=== PATIENT | male | born 1940 | race Caucasian/White ===

== ENCOUNTER 2020-08-16 08:05 | Inpatient (IN) | payer OTHER, MEDICAID, SELFPAY ==
[~2020-08-16] VITALS: Ht 170.2 cm; Wt 78.9 kg
[2020-08-16 02:00] VITALS: BP 141/71
[2020-08-16 08:05] VITALS: BP 135/70
[~2020-08-16 08:05] MED LIST: CLIN-223 PO; CLOP75TA PO; HYDR1TAB28 PO; NIFE60TA39 PO; RAMI2.5C28 PO; SULF1TAB12
[2020-08-16] MEDS ORDERED: ACETAMINOPHEN 325 MG TAB PO ONE (08:15)
[2020-08-16] MEDS ORDERED: DEXAMETHASONE 4 MG/ML VIAL IVP ONE (08:15)
[2020-08-16] MEDS ORDERED: NIFE30TE5 PO (08:19)
[2020-08-16] MEDS ORDERED: ASPI-1822 PO (08:19)
[2020-08-16] MEDS ORDERED: DOXA2TAB1 PO (08:19)
[2020-08-16] MEDS ORDERED: HYDR-3293 PO (08:19)
[2020-08-16] MEDS ORDERED: ALPR0.5T2 PO (08:19)
[2020-08-16] MEDS ORDERED: OMEP40EC24 PO (08:19)
[2020-08-16] MEDS ORDERED: ATOR10TA PO (08:19)
[2020-08-16] MEDS ORDERED: CILO100T PO (08:19)
[2020-08-16 08:30] LABS: BASOPHILS % (AUTO) 0.2 % (0.0-2.0); HEMATOCRIT 36.6 % (36-52); HEMOGLOBIN 12.2 g/dL (12.0-18.0); LYMPHOCYTES # (AUTO) 1.2 K/uL (2.0-11.5); LYMPHOCYTES % (AUTO) 13.3 % (20.5-51.1); MEAN CORPUSCULAR HEMOGLOBIN 29 pg (27-31); MEAN CORPUSCULAR HGB CONC 33 g/dL (33-37); MONOCYTES # (AUTO) 0.4 K/uL (0.8-1.0); MONOCYTES % (AUTO) 4.2 % (1.7-9.3); NEUTROPHILS # (AUTO) 7.3 K/uL (1.8-7.7); NEUTROPHILS % (AUTO) 82.3 % (42.2-75.2); PLATELET COUNT (AUTO) 157 K/uL (140-450); RED BLOOD CELL COUNT(AUTO) 4.16 MIL/uL (4.20-6.10); RED CELL DISTRIBUTION WIDTH 13.7 % (11.6-13.7); WHITE BLOOD COUNT (AUTO) 8.8 K/uL (4.8-10.8)
[2020-08-16 08:52] LABS: ALBUMIN 3.1 g/dL (3.4-5.0); ANION GAP 16.4 (8-16); ASPARTATE AMINOTRANSFERASE 90 U/L (15-37); CARBON DIOXIDE 22.6 mmol/L (21-32); CHLORIDE 100 mmol/L (98-107); CREATININE 1.9 mg/dL (0.6-1.3); GLUCOSE 113 mg/dL (74-106); SODIUM SERUM 135 mmol/L (136-145); TOTAL BILIRUBIN 0.5 mg/dL (0.0-1.0); UREA NITROGEN, BLOOD 25 mg/dL (7-18)
[2020-08-16 09:22] LABS: C-REACTIVE PROTEIN QUANT 24.1 mg/dL (0.0-0.9)
[2020-08-16] MEDS ORDERED: ASPIRIN 81 MG TAB.CHEW PO SCH (10:15)
[2020-08-16] MEDS ORDERED: MAGNESIUM OXIDE 400 MG TAB PO PRN (10:50)
[2020-08-16] MEDS ORDERED: ALPRAZolam 0.5 MG TAB PO PRN (10:50)
[2020-08-16] MEDS ORDERED: HYDROcodone/APAP 5/325 MG 1 TAB TAB PO PRN (10:50)
[2020-08-16] MEDS ORDERED: ZOLPIDEM 5 MG TAB PO PRN (10:50)
[2020-08-16] MEDS ORDERED: MAG SULF 2000 MG/WATER PREMIX 50 ML IV PRN (10:50)
[2020-08-16] MEDS ORDERED: ONDANSETRON 4 MG/2 ML VIAL IVP PRN (10:50)
[2020-08-16] MEDS ORDERED: KCL 20 MEQ/WATER INJ PREMIX 200 ML IV PRN (10:50)
[2020-08-16] MEDS ORDERED: cefTRIAXone 1,000 MG VIAL ONE (11:23)
[2020-08-16] MEDS: POTASSIUM CHL 40 MEQ/ D5-1/2NS 1,000 ML IV SCH ×2 (11:25→23:32)
[2020-08-16] MEDS: ENOXAPARIN 40 MG/0.4 ML SYR SUBQ SCH ×2 (11:25→21:27)
[2020-08-16] MEDS: ALBUTEROL SULFATE/IPRATROPIU 3 ML SOL IH SCH ×2 (13:00→19:50)
[2020-08-16] MEDS ORDERED: AZITHROMYCIN 500 MG in DEXTROSE 5% 250 ML IV SCH (13:00)
[2020-08-16] MEDS ORDERED: NON-FORMULARY ITEM (Losartan/Hydrochlorothiazide (Losartan-Hctz 50-12.5 mg Tab) 1 TAB) PO SCH (21:00)
[2020-08-16] MEDS: NIFEdipine 30 MG TABER PO SCH (21:14)
[2020-08-16] MEDS: hydroCHLOROthiazide 25 MG TAB PO SCH (21:18)
[2020-08-16] MEDS: ATORVASTATIN 20 MG TAB PO SCH (21:21)
[2020-08-16] MEDS: LOSARTAN 50 MG TAB PO SCH (21:22)
[2020-08-16] MEDS: cilostazoL 100 MG TAB PO SCH (21:23)
[2020-08-16] MEDS: DOXAZOSIN 2 MG TAB PO SCH (21:26)
[2020-08-17] VITALS (61 sets, daily range): BP systolic 90–170; BP diastolic 45–125
[2020-08-17 00:57] LABS: BASOPHILS % (AUTO) 0.2 % (0.0-2.0); HEMOGLOBIN 11.8 g/dL (12.0-18.0); LYMPHOCYTES # (AUTO) 1.3 K/uL (2.0-11.5); MEAN CORPUSCULAR HEMOGLOBIN 29 pg (27-31); MEAN CORPUSCULAR HGB CONC 33 g/dL (33-37); MEAN CORPUSCULAR VOLUME 88.7 fL (80-94); MONOCYTES # (AUTO) 0.5 K/uL (0.8-1.0); MONOCYTES % (AUTO) 2.8 % (1.7-9.3); NEUTROPHILS # (AUTO) 14.6 K/uL (1.8-7.7); PLATELET COUNT (AUTO) 163 K/uL (140-450); RED BLOOD CELL COUNT(AUTO) 4.06 MIL/uL (4.20-6.10); RED CELL DISTRIBUTION WIDTH 14.1 % (11.6-13.7); WHITE BLOOD COUNT (AUTO) 16.4 K/uL (4.8-10.8)
[2020-08-17 01:20] LABS: ALBUMIN 2.4 g/dL (3.4-5.0); ASPARTATE AMINOTRANSFERASE 108 U/L (15-37); GLUCOSE 350 mg/dL (74-106); TOTAL BILIRUBIN 0.2 mg/dL (0.0-1.0); UREA NITROGEN, BLOOD 26 mg/dL (7-18)
[2020-08-17 01:27] LABS: ANION GAP 18.1 (8-16); CHLORIDE 99 mmol/L (98-107); POTASSIUM 4.1 mmol/L (3.5-5.1); SODIUM SERUM 134 mmol/L (136-145)
[2020-08-17] MEDS ORDERED: fentaNYL citrate 1 MG in NACL 0.9% 80 ML IV PRN ×2 (02:00→03:15)
[2020-08-17] MEDS ORDERED: MIDAZOLAM MDV 50 MG in NACL 0.9% 40 ML IV PRN (02:00)
[2020-08-17] MEDS ORDERED: MIDAZOLAM MDV 50 MG/10 ML VIAL IV ONE (02:21)
[2020-08-17 03:41] LABS: APPEARANCE,URINE SL CLOUDY (CLEAR); BILIRUBIN,URINE NEGATIVE (NEGATIVE); BLOOD, URINE 3+ (NEGATIVE); COLOR,URINE YELLOW (YELLOW); LEUKOCYTE ESTERASE ,URINE NEGATIVE (NEGATIVE); NITRITE, URINE NEGATIVE (NEGATIVE); UGLUCOSE NEGATIVE (NEGATIVE)
[2020-08-17] MEDS: POTASSIUM CHL 40 MEQ/ D5-1/2NS 1,000 ML IV SCH (05:00)
[2020-08-17 06:12] LABS: BASOPHILS # (AUTO) 0.1 K/uL (0.00-0.22); BASOPHILS % (AUTO) 0.5 % (0.0-2.0); HEMATOCRIT 36.7 % (36-52); LYMPHOCYTES # (AUTO) 0.4 K/uL (2.0-11.5); LYMPHOCYTES % (AUTO) 2.1 % (20.5-51.1); MEAN CORPUSCULAR HEMOGLOBIN 29 pg (27-31); MEAN CORPUSCULAR HGB CONC 33 g/dL (33-37); MEAN CORPUSCULAR VOLUME 88.9 fL (80-94); MONOCYTES # (AUTO) 0.5 K/uL (0.8-1.0); MONOCYTES % (AUTO) 2.7 % (1.7-9.3); NEUTROPHILS # (AUTO) 18.9 K/uL (1.8-7.7); NEUTROPHILS % (AUTO) 94.7 % (42.2-75.2); PLATELET COUNT (AUTO) 165 K/uL (140-450); RED BLOOD CELL COUNT(AUTO) 4.13 MIL/uL (4.20-6.10); RED CELL DISTRIBUTION WIDTH 14.2 % (11.6-13.7); WHITE BLOOD COUNT (AUTO) 19.9 K/uL (4.8-10.8)
[2020-08-17 06:14] LABS: PROTHROMBIN TIME 10.6 secs (10.8-13.4)
[2020-08-17] MEDS: LANSOPRAZOLE 30 MG CAPDR PO SCH (06:25)
[2020-08-17 06:33] LABS: ALBUMIN 2.4 g/dL (3.4-5.0); ANION GAP 15.2 (8-16); ASPARTATE AMINOTRANSFERASE 173 U/L (15-37); CARBON DIOXIDE 21.8 mmol/L (21-32); CHLORIDE 102 mmol/L (98-107); CHOL/HDL RATIO 3.6 (1-4.5); CREATININE 1.8 mg/dL (0.6-1.3); GLUCOSE 236 mg/dL (74-106); MAGNESIUM 1.7 mg/dL (1.8-2.4); SODIUM SERUM 135 mmol/L (136-145); TOTAL BILIRUBIN 0.4 mg/dL (0.0-1.0); UREA NITROGEN, BLOOD 27 mg/dL (7-18)
[2020-08-17 07:27] LABS: D-DIMER > 5000 ng/ml (0-400)
[2020-08-17] MEDS: NIFEdipine 30 MG TABER PO SCH ×2 (09:00→21:00)
[2020-08-17] MEDS ORDERED: NON-FORMULARY ITEM (Omeprazole* (Prilosec*) 20 MG) PO SCH (09:00)
[2020-08-17] MEDS ORDERED: DOCUSATE SODIUM 100 MG GELCAP PO SCH (09:00)
[2020-08-17] MEDS: LOSARTAN 50 MG TAB PO SCH (09:00)
[2020-08-17] MEDS: hydroCHLOROthiazide 25 MG TAB PO SCH (09:00)
[2020-08-17] MEDS: ASPIRIN 81 MG TAB.CHEW PO SCH (09:34)
[2020-08-17] MEDS: ENOXAPARIN 40 MG/0.4 ML SYR SUBQ SCH (09:35)
[2020-08-17] MEDS: DOCUSATE 100 MG/10 ML UDC GT SCH (09:37)
[2020-08-17] MEDS: cilostazoL 100 MG TAB PO SCH ×2 (10:33→21:00)
[2020-08-17] MEDS ORDERED: FUROSEMIDE 40 MG/4 ML VIAL IVP SCH (15:30)
[2020-08-17] MEDS: hePARIN / DEXT 5% PREMIX 250 ML IV SCH (16:45)
[2020-08-17 19:06] LABS: LACTATE DEHYDROGENASE 414 IU/L (0-214)
[2020-08-17] MEDS ORDERED: ROCURONIUM 50 MG/5 ML VIAL IV SCH (19:10)
[2020-08-17] MEDS: ALBUTEROL SULFATE/IPRATROPIU 3 ML SOL IH SCH (19:49)
[2020-08-17] MEDS: DOXAZOSIN 2 MG TAB PO SCH (21:00)
[2020-08-17] MEDS: ATORVASTATIN 20 MG TAB PO SCH (21:44)
[2020-08-17] MEDS: fentaNYL citrate - 50mL vial 2.5 MG in NACL 0.9% 200 ML IV PRN (23:01)
[2020-08-18] VITALS (52 sets, daily range): BP systolic 76–137; BP diastolic 1–93
[2020-08-18] MEDS: MIDAZOLAM MDV 100 MG in NACL 0.9% 80 ML IV PRN (01:20)
[2020-08-18] MEDS: ALBUTEROL SULFATE/IPRATROPIU 3 ML SOL IH SCH ×4 (01:46→19:00)
[2020-08-18 06:08] LABS: BASOPHILS % (AUTO) 0.1 % (0.0-2.0); HEMATOCRIT 33.4 % (36-52); LYMPHOCYTES # (AUTO) 0.6 K/uL (2.0-11.5); LYMPHOCYTES % (AUTO) 2.6 % (20.5-51.1); MEAN CORPUSCULAR HEMOGLOBIN 29 pg (27-31); MEAN CORPUSCULAR HGB CONC 33 g/dL (33-37); MEAN CORPUSCULAR VOLUME 88.7 fL (80-94); MONOCYTES # (AUTO) 0.6 K/uL (0.8-1.0); NEUTROPHILS # (AUTO) 20.4 K/uL (1.8-7.7); NEUTROPHILS % (AUTO) 94.3 % (42.2-75.2); PLATELET COUNT (AUTO) 192 K/uL (140-450); RED BLOOD CELL COUNT(AUTO) 3.77 MIL/uL (4.20-6.10); WHITE BLOOD COUNT (AUTO) 21.6 K/uL (4.8-10.8)
[2020-08-18 06:56] LABS: ALBUMIN 2.4 g/dL (3.4-5.0); ANION GAP 15.3 (8-16); ASPARTATE AMINOTRANSFERASE 150 U/L (15-37); CARBON DIOXIDE 22.9 mmol/L (21-32); CHLORIDE 102 mmol/L (98-107); CREATININE 2.2 mg/dL (0.6-1.3); GLUCOSE 127 mg/dL (74-106); MAGNESIUM 1.9 mg/dL (1.8-2.4); SODIUM SERUM 135 mmol/L (136-145); TOTAL BILIRUBIN 0.5 mg/dL (0.0-1.0); UREA NITROGEN, BLOOD 37 mg/dL (7-18)
[2020-08-18] MEDS: LANSOPRAZOLE 30 MG CAPDR PO SCH (06:58)
[2020-08-18 07:15] LABS: POTASSIUM 5.2 mmol/L (3.5-5.1)
[2020-08-18] MEDS: ASPIRIN 81 MG TAB.CHEW PO SCH (09:00)
[2020-08-18] MEDS: HEPARIN PER PHARMACY MC SCH (09:00)
[2020-08-18] MEDS: NIFEdipine 30 MG TABER PO SCH ×2 (09:00→20:26)
[2020-08-18] MEDS: DOCUSATE 100 MG/10 ML UDC GT SCH (09:00)
[2020-08-18] MEDS: LOSARTAN 25 MG TAB PO SCH (09:00)
[2020-08-18] MEDS: cilostazoL 100 MG TAB PO SCH ×2 (09:13→20:39)
[2020-08-18] MEDS: AZITHROMYCIN 500 MG in DEXTROSE 5% 250 ML IV SCH (10:45)
[2020-08-18] MEDS ORDERED: FUROSEMIDE 40 MG/4 ML VIAL IVP SCH (13:36)
[2020-08-18] MEDS: NOREPINEPHRINE 16 MG in DEXTROSE 5% 250 ML IV PRN (13:49)
[2020-08-18] MEDS: PIPERACILLIN/TAZOBACTAM 2.25 GM in DEXTROSE 5% 50 ML IV SCH (17:29)
[2020-08-18] MEDS: fentaNYL citrate - 50mL vial 2.5 MG in NACL 0.9% 200 ML IV PRN (18:41)
[2020-08-18] MEDS: hePARIN / DEXT 5% PREMIX 250 ML IV SCH (20:15)
[2020-08-18] MEDS: DOXAZOSIN 2 MG TAB PO SCH (20:27)
[2020-08-18] MEDS: ATORVASTATIN 20 MG TAB PO SCH (20:39)
[2020-08-18] MEDS ORDERED: CRUSHER, PILL MC ONE (20:43)
[2020-08-18 20:50] LABS: PROTHROMBIN TIME 10.5 secs (10.8-13.4)
[2020-08-19] VITALS (35 sets, daily range): BP systolic 78–143; BP diastolic 29–91
[2020-08-19] MEDS: ALBUTEROL SULFATE/IPRATROPIU 3 ML SOL IH SCH ×3 (01:07→13:00)
[2020-08-19] MEDS: MIDAZOLAM MDV 100 MG in NACL 0.9% 80 ML IV PRN ×2 (02:19→10:56)
[2020-08-19] MEDS: PIPERACILLIN/TAZOBACTAM 2.25 GM in DEXTROSE 5% 50 ML IV SCH ×3 (05:00→21:08)
[2020-08-19 06:25] LABS: BASOPHILS % (AUTO) 0.2 % (0.0-2.0); HEMATOCRIT 33.8 % (36-52); HEMOGLOBIN 11.1 g/dL (12.0-18.0); LYMPHOCYTES # (AUTO) 0.4 K/uL (2.0-11.5); LYMPHOCYTES % (AUTO) 2.6 % (20.5-51.1); MEAN CORPUSCULAR HEMOGLOBIN 29 pg (27-31); MEAN CORPUSCULAR HGB CONC 33 g/dL (33-37); MEAN CORPUSCULAR VOLUME 88.3 fL (80-94); MONOCYTES # (AUTO) 0.5 K/uL (0.8-1.0); MONOCYTES % (AUTO) 3.2 % (1.7-9.3); NEUTROPHILS # (AUTO) 13.9 K/uL (1.8-7.7); PLATELET COUNT (AUTO) 187 K/uL (140-450); RED BLOOD CELL COUNT(AUTO) 3.83 MIL/uL (4.20-6.10); RED CELL DISTRIBUTION WIDTH 13.8 % (11.6-13.7); WHITE BLOOD COUNT (AUTO) 14.8 K/uL (4.8-10.8)
[2020-08-19] MEDS: LANSOPRAZOLE 30 MG CAPDR PO SCH (06:31)
[2020-08-19 06:46] LABS: PROTHROMBIN TIME 10.8 secs (10.8-13.4)
[2020-08-19 06:53] LABS: ALBUMIN 2.3 g/dL (3.4-5.0); ANION GAP 14.7 (8-16); ASPARTATE AMINOTRANSFERASE 88 U/L (15-37); CARBON DIOXIDE 23.2 mmol/L (21-32); CHLORIDE 100 mmol/L (98-107); CREATININE 2.3 mg/dL (0.6-1.3); GLUCOSE 203 mg/dL (74-106); MAGNESIUM 2.1 mg/dL (1.8-2.4); POTASSIUM 3.9 mmol/L (3.5-5.1); SODIUM SERUM 134 mmol/L (136-145); TOTAL BILIRUBIN 0.4 mg/dL (0.0-1.0); UREA NITROGEN, BLOOD 48 mg/dL (7-18)
[2020-08-19] MEDS: HEPARIN PER PHARMACY MC SCH (09:00)
[2020-08-19] MEDS: NIFEdipine 30 MG TABER PO SCH (09:00)
[2020-08-19] MEDS: cilostazoL 100 MG TAB PO SCH ×2 (09:00→21:11)
[2020-08-19] MEDS: LOSARTAN 25 MG TAB PO SCH (09:00)
[2020-08-19] MEDS: DOCUSATE 100 MG/10 ML UDC GT SCH (09:30)
[2020-08-19] MEDS: ASPIRIN 81 MG TAB.CHEW PO SCH (09:30)
[2020-08-19] MEDS: hePARIN / DEXT 5% PREMIX 250 ML IV SCH ×2 (09:33→17:06)
[2020-08-19] MEDS ORDERED: CRUSHER, PILL MC ONE (09:45)
[2020-08-19] MEDS: AZITHROMYCIN 500 MG in DEXTROSE 5% 250 ML IV SCH (10:54)
[2020-08-19] MEDS: MIDODRINE 5 MG TAB PO SCH ×2 (12:21→17:09)
[2020-08-19] MEDS: ATORVASTATIN 20 MG TAB PO SCH (21:05)
[2020-08-19] MEDS: fentaNYL citrate - 50mL vial 2.5 MG in NACL 0.9% 200 ML IV PRN (21:23)
[2020-08-20] VITALS (33 sets, daily range): BP systolic 110–175; BP diastolic 44–82
[2020-08-20] MEDS: MIDODRINE 5 MG TAB PO SCH ×5 (00:40→23:20)
[2020-08-20] MEDS: NOREPINEPHRINE 16 MG in DEXTROSE 5% 250 ML IV PRN (02:00)
[2020-08-20] MEDS: PIPERACILLIN/TAZOBACTAM 2.25 GM in DEXTROSE 5% 50 ML IV SCH ×3 (05:46→20:58)
[2020-08-20] MEDS: cilostazoL 100 MG TAB PO SCH ×2 (05:56→20:52)
[2020-08-20 06:07] LABS: BASOPHILS % (AUTO) 0.2 % (0.0-2.0); LYMPHOCYTES # (AUTO) 0.4 K/uL (2.0-11.5); MEAN CORPUSCULAR HEMOGLOBIN 29 pg (27-31); MEAN CORPUSCULAR HGB CONC 33 g/dL (33-37); MEAN CORPUSCULAR VOLUME 87.3 fL (80-94); MONOCYTES # (AUTO) 0.7 K/uL (0.8-1.0); NEUTROPHILS # (AUTO) 16.8 K/uL (1.8-7.7); PLATELET COUNT (AUTO) 220 K/uL (140-450); RED BLOOD CELL COUNT(AUTO) 3.09 MIL/uL (4.20-6.10); RED CELL DISTRIBUTION WIDTH 13.9 % (11.6-13.7)
[2020-08-20 06:29] LABS: ALBUMIN 1.9 g/dL (3.4-5.0); ANION GAP 12.5 (8-16); ASPARTATE AMINOTRANSFERASE 60 U/L (15-37); CARBON DIOXIDE 23.9 mmol/L (21-32); CHLORIDE 102 mmol/L (98-107); CREATININE 2.4 mg/dL (0.6-1.3); GLUCOSE 144 mg/dL (74-106); MAGNESIUM 2.1 mg/dL (1.8-2.4); POTASSIUM 4.4 mmol/L (3.5-5.1); SODIUM SERUM 134 mmol/L (136-145); TOTAL BILIRUBIN 0.4 mg/dL (0.0-1.0); UREA NITROGEN, BLOOD 54 mg/dL (7-18)
[2020-08-20 06:32] LABS: PROTHROMBIN TIME 10.9 secs (10.8-13.4)
[2020-08-20 07:02] LABS: LYMPHOCYTES % (AUTO) 2.4 % (20.5-51.1); NEUTROPHILS % (AUTO) 93.4 % (42.2-75.2)
[2020-08-20] MEDS: hePARIN / DEXT 5% PREMIX 250 ML IV SCH ×2 (07:17→12:00)
[2020-08-20] MEDS: DOCUSATE 100 MG/10 ML UDC GT SCH (09:47)
[2020-08-20] MEDS: PANTOPRAZOLE 40 MG INJ VIAL IVP SCH (09:47)
[2020-08-20] MEDS: DEXAMETHASONE 4 MG/ML VIAL IVP SCH (09:47)
[2020-08-20] MEDS: ASPIRIN 81 MG TAB.CHEW PO SCH (09:48)
[2020-08-20] MEDS: HEPARIN PER PHARMACY MC SCH ×2 (09:49→12:00)
[2020-08-20] MEDS: AZITHROMYCIN 500 MG in DEXTROSE 5% 250 ML IV SCH (10:45)
[2020-08-20] MEDS: MIDAZOLAM MDV 100 MG in NACL 0.9% 80 ML IV PRN ×2 (18:30→23:50)
[2020-08-20] MEDS: ATORVASTATIN 20 MG TAB PO SCH (20:52)
[2020-08-21] VITALS (35 sets, daily range): BP systolic 95–199; BP diastolic 44–121
[2020-08-21] MEDS: PIPERACILLIN/TAZOBACTAM 2.25 GM in DEXTROSE 5% 50 ML IV SCH ×3 (05:21→21:01)
[2020-08-21] MEDS: MIDODRINE 5 MG TAB PO SCH (05:22)
[2020-08-21 06:14] LABS: BASOPHILS # (AUTO) 0.1 K/uL (0.00-0.22); BASOPHILS % (AUTO) 0.9 % (0.0-2.0); EOSINOPHILS % (AUTO) 0.1 % (0.0-4.0); HEMOGLOBIN 9.9 g/dL (12.0-18.0); LYMPHOCYTES # (AUTO) 0.6 K/uL (2.0-11.5); LYMPHOCYTES % (AUTO) 4.1 % (20.5-51.1); MEAN CORPUSCULAR HEMOGLOBIN 28 pg (27-31); MEAN CORPUSCULAR HGB CONC 32 g/dL (33-37); MEAN CORPUSCULAR VOLUME 87.9 fL (80-94); MONOCYTES # (AUTO) 0.8 K/uL (0.8-1.0); MONOCYTES % (AUTO) 5.1 % (1.7-9.3); NEUTROPHILS # (AUTO) 13.5 K/uL (1.8-7.7); NEUTROPHILS % (AUTO) 89.8 % (42.2-75.2); PLATELET COUNT (AUTO) 281 K/uL (140-450); RED BLOOD CELL COUNT(AUTO) 3.53 MIL/uL (4.20-6.10); RED CELL DISTRIBUTION WIDTH 14.1 % (11.6-13.7)
[2020-08-21 06:34] LABS: ALBUMIN 2.1 g/dL (3.4-5.0); ANION GAP 13.7 (8-16); ASPARTATE AMINOTRANSFERASE 233 U/L (15-37); CARBON DIOXIDE 25.1 mmol/L (21-32); CHLORIDE 101 mmol/L (98-107); CREATININE 2.2 mg/dL (0.6-1.3); GLUCOSE 152 mg/dL (74-106); MAGNESIUM 2.3 mg/dL (1.8-2.4); POTASSIUM 3.8 mmol/L (3.5-5.1); SODIUM SERUM 136 mmol/L (136-145); TOTAL BILIRUBIN 0.4 mg/dL (0.0-1.0); UREA NITROGEN, BLOOD 55 mg/dL (7-18)
[2020-08-21] MEDS: ALBUTEROL SULFATE/IPRATROPIU 3 ML SOL IH SCH ×3 (06:37→19:19)
[2020-08-21 08:39] LABS: PROTHROMBIN TIME 10.4 secs (10.8-13.4)
[2020-08-21] MEDS: ASPIRIN 81 MG TAB.CHEW PO SCH (09:00)
[2020-08-21] MEDS: PANTOPRAZOLE 40 MG INJ VIAL IVP SCH (09:15)
[2020-08-21] MEDS: cilostazoL 100 MG TAB PO SCH ×2 (09:15→21:05)
[2020-08-21] MEDS: DEXAMETHASONE 4 MG/ML VIAL IVP SCH (09:15)
[2020-08-21] MEDS: DOCUSATE 100 MG/10 ML UDC GT SCH (09:15)
[2020-08-21] MEDS: ACETAMINOPHEN 325 MG TAB PO PRN (10:06)
[2020-08-21] MEDS: AZITHROMYCIN 500 MG in DEXTROSE 5% 250 ML IV SCH (10:16)
[2020-08-21] MEDS: hePARIN / DEXT 5% PREMIX 250 ML IV SCH (12:42)
[2020-08-21] MEDS: LABETALOL 100 MG/20 ML VIAL IV PRN (15:55)
[2020-08-21] MEDS: MIDAZOLAM MDV 100 MG in NACL 0.9% 80 ML IV PRN (17:37)
[2020-08-21] MEDS: carvediloL 6.25 MG TAB PO SCH (21:01)
[2020-08-21] MEDS: ATORVASTATIN 20 MG TAB PO SCH (21:02)
[2020-08-22] VITALS (32 sets, daily range): BP systolic 103–144; BP diastolic 47–64
[2020-08-22] MEDS: ALBUTEROL SULFATE/IPRATROPIU 3 ML SOL IH SCH ×4 (01:04→19:03)
[2020-08-22] MEDS: fentaNYL citrate - 50mL vial 2.5 MG in NACL 0.9% 200 ML IV PRN ×2 (02:03→20:51)
[2020-08-22] MEDS: PIPERACILLIN/TAZOBACTAM 2.25 GM in DEXTROSE 5% 50 ML IV SCH ×3 (04:36→20:29)
[2020-08-22 06:07] LABS: LD1 FRACTION 17 % (17-32); LD2 FRACTION 31 % (25-40); LD3 FRACTION 23 % (17-27); LD4 FRACTION 14 % (5-13); LD5 FRACTION 15 % (4-20)
[2020-08-22] MEDS: MIDAZOLAM MDV 100 MG in NACL 0.9% 80 ML IV PRN (06:47)
[2020-08-22 07:43] LABS: BASOPHILS % (AUTO) 0.3 % (0.0-2.0); EOSINOPHILS # (AUTO) 0.5 K/uL (0-0.4); EOSINOPHILS % (AUTO) 3.3 % (0.0-4.0); HEMATOCRIT 25.3 % (36-52); HEMOGLOBIN 8.4 g/dL (12.0-18.0); LYMPHOCYTES # (AUTO) 0.8 K/uL (2.0-11.5); LYMPHOCYTES % (AUTO) 5.2 % (20.5-51.1); MEAN CORPUSCULAR HEMOGLOBIN 29 pg (27-31); MEAN CORPUSCULAR HGB CONC 33 g/dL (33-37); MEAN CORPUSCULAR VOLUME 86.7 fL (80-94); MONOCYTES # (AUTO) 0.9 K/uL (0.8-1.0); MONOCYTES % (AUTO) 6.3 % (1.7-9.3); NEUTROPHILS # (AUTO) 12.4 K/uL (1.8-7.7); NEUTROPHILS % (AUTO) 84.9 % (42.2-75.2); PLATELET COUNT (AUTO) 248 K/uL (140-450); RED BLOOD CELL COUNT(AUTO) 2.92 MIL/uL (4.20-6.10); RED CELL DISTRIBUTION WIDTH 14.1 % (11.6-13.7); WHITE BLOOD COUNT (AUTO) 14.6 K/uL (4.8-10.8)
[2020-08-22] MEDS: ASPIRIN 81 MG TAB.CHEW PO SCH (09:00)
[2020-08-22] MEDS: HEPARIN PER PHARMACY MC SCH (09:00)
[2020-08-22 09:07] LABS: MAGNESIUM 2.3 mg/dL (1.8-2.4); PHOSPHORUS 3.5 mg/dL (2.5-4.9)
[2020-08-22] MEDS: DOCUSATE 100 MG/10 ML UDC GT SCH (09:35)
[2020-08-22] MEDS: DEXAMETHASONE 4 MG/ML VIAL IVP SCH (09:35)
[2020-08-22] MEDS: PANTOPRAZOLE 40 MG INJ VIAL IVP SCH (09:35)
[2020-08-22] MEDS: carvediloL 6.25 MG TAB PO SCH ×2 (09:36→20:31)
[2020-08-22] MEDS: amLODIPine 5 MG TAB PO SCH (09:36)
[2020-08-22] MEDS: cilostazoL 100 MG TAB PO SCH ×2 (09:37→20:33)
[2020-08-22] MEDS: AZITHROMYCIN 500 MG in DEXTROSE 5% 250 ML IV SCH (10:14)
[2020-08-22 11:52] LABS: ANION GAP 15.9 (8-16); CARBON DIOXIDE 22.4 mmol/L (21-32); CHLORIDE 101 mmol/L (98-107); CREATININE 1.9 mg/dL (0.6-1.3); GLUCOSE 165 mg/dL (74-106); POTASSIUM 4.3 mmol/L (3.5-5.1); SODIUM SERUM 135 mmol/L (136-145); UREA NITROGEN, BLOOD 53 mg/dL (7-18)
[2020-08-22 15:58] LABS: APPEARANCE,URINE CLOUDY (CLEAR); BILIRUBIN,URINE NEGATIVE (NEGATIVE); BLOOD, URINE 2+ (NEGATIVE); COLOR,URINE YELLOW (YELLOW); LEUKOCYTE ESTERASE ,URINE NEGATIVE (NEGATIVE); NITRITE, URINE NEGATIVE (NEGATIVE); UGLUCOSE NEGATIVE (NEGATIVE)
[2020-08-22] MEDS: hePARIN / DEXT 5% PREMIX 250 ML IV SCH (16:13)
[2020-08-22 17:43] LABS: RBC,URINE 11-20 (MOD) /HPF (0-5); WBC,URINE 0-5 /HPF (0-5)
[2020-08-22 17:44] LABS: URIC ACID CRYSTALS,URINE 0-10 /HPF (None Seen); URINE AMORPHOUS URATE 1+ /HPF (None Seen)
[2020-08-22] MEDS: ATORVASTATIN 20 MG TAB PO SCH (20:31)
[2020-08-23] VITALS (34 sets, daily range): BP systolic 123–195; BP diastolic 56–88
[2020-08-23] MEDS: MIDAZOLAM MDV 100 MG in NACL 0.9% 80 ML IV PRN (00:50)
[2020-08-23] MEDS: ALBUTEROL SULFATE/IPRATROPIU 3 ML SOL IH SCH ×4 (01:00→23:15)
[2020-08-23] MEDS: PIPERACILLIN/TAZOBACTAM 2.25 GM in DEXTROSE 5% 50 ML IV SCH ×3 (04:45→20:44)
[2020-08-23 06:07] LABS: HEMATOCRIT 23.7 % (36-52); HEMOGLOBIN 7.8 g/dL (12.0-18.0); MEAN CORPUSCULAR HEMOGLOBIN 30 pg (27-31); MEAN CORPUSCULAR HGB CONC 33 g/dL (33-37); MEAN CORPUSCULAR VOLUME 90.3 fL (80-94); PLATELET COUNT (AUTO) 251 K/uL (140-450); RED BLOOD CELL COUNT(AUTO) 2.62 MIL/uL (4.20-6.10); RED CELL DISTRIBUTION WIDTH 13.9 % (11.6-13.7)
[2020-08-23 06:12] LABS: CARBON DIOXIDE 25.5 mmol/L (21-32); CHLORIDE 101 mmol/L (98-107); CREATININE 1.9 mg/dL (0.6-1.3); GLUCOSE 242 mg/dL (74-106); POTASSIUM 4.5 mmol/L (3.5-5.1); SODIUM SERUM 133 mmol/L (136-145); UREA NITROGEN, BLOOD 56 mg/dL (7-18)
[2020-08-23] MEDS: LABETALOL 100 MG/20 ML VIAL IV PRN (06:16)
[2020-08-23 06:31] LABS: MAGNESIUM 2.5 mg/dL (1.8-2.4)
[2020-08-23 07:58] LABS: LYMPHOCYTES % (MANUAL) 5 % (20-46); MONOCYTES % (MANUAL) 3 % (5-12)
[2020-08-23] MEDS ORDERED: FUROSEMIDE 100 MG/10 ML VIAL IV ONE (08:10)
[2020-08-23] MEDS: DOCUSATE 100 MG/10 ML UDC GT SCH (08:50)
[2020-08-23] MEDS: DEXAMETHASONE 4 MG/ML VIAL IVP SCH (08:50)
[2020-08-23] MEDS: PANTOPRAZOLE 40 MG INJ VIAL IVP SCH (08:51)
[2020-08-23] MEDS: ASPIRIN 81 MG TAB.CHEW PO SCH (08:52)
[2020-08-23] MEDS: amLODIPine 5 MG TAB PO SCH (08:53)
[2020-08-23] MEDS: carvediloL 6.25 MG TAB PO SCH ×2 (08:53→20:22)
[2020-08-23] MEDS: cilostazoL 100 MG TAB PO SCH ×2 (08:58→20:21)
[2020-08-23] MEDS: HEPARIN PER PHARMACY MC SCH (09:00)
[2020-08-23] MEDS: AZITHROMYCIN 500 MG in DEXTROSE 5% 250 ML IV SCH (10:30)
[2020-08-23] MEDS: hePARIN / DEXT 5% PREMIX 250 ML IV SCH ×2 (10:44→20:15)
[2020-08-23] MEDS: ATORVASTATIN 20 MG TAB PO SCH (20:22)
[2020-08-23] MEDS: fentaNYL citrate - 50mL vial 2.5 MG in NACL 0.9% 200 ML IV PRN (21:42)
[2020-08-24] VITALS (30 sets, daily range): BP systolic 32–185; BP diastolic 17–93
[2020-08-24] MEDS: fentaNYL citrate - 50mL vial 2.5 MG in NACL 0.9% 200 ML IV PRN ×2 (01:08→21:27)
[2020-08-24] MEDS: hePARIN / DEXT 5% PREMIX 250 ML IV SCH ×2 (02:15→08:45)
[2020-08-24] MEDS: PIPERACILLIN/TAZOBACTAM 2.25 GM in DEXTROSE 5% 50 ML IV SCH ×3 (04:36→20:59)
[2020-08-24] MEDS: ALBUTEROL SULFATE/IPRATROPIU 3 ML SOL IH SCH ×4 (05:10→19:41)
[2020-08-24 06:29] LABS: BASOPHILS % (AUTO) 0.1 % (0.0-2.0); EOSINOPHILS % (AUTO) 0.1 % (0.0-4.0); HEMATOCRIT 21.4 % (36-52); LYMPHOCYTES # (AUTO) 0.6 K/uL (2.0-11.5); LYMPHOCYTES % (AUTO) 4.1 % (20.5-51.1); MEAN CORPUSCULAR HEMOGLOBIN 30 pg (27-31); MEAN CORPUSCULAR HGB CONC 33 g/dL (33-37); MEAN CORPUSCULAR VOLUME 90.1 fL (80-94); MONOCYTES % (AUTO) 6.6 % (1.7-9.3); NEUTROPHILS # (AUTO) 13.7 K/uL (1.8-7.7); NEUTROPHILS % (AUTO) 89.1 % (42.2-75.2); PLATELET COUNT (AUTO) 250 K/uL (140-450); RED BLOOD CELL COUNT(AUTO) 2.38 MIL/uL (4.20-6.10); RED CELL DISTRIBUTION WIDTH 14.1 % (11.6-13.7); WHITE BLOOD COUNT (AUTO) 15.4 K/uL (4.8-10.8)
[2020-08-24 06:33] LABS: ANION GAP 9.4 (8-16); CHLORIDE 101 mmol/L (98-107); CREATININE 1.8 mg/dL (0.6-1.3); GLUCOSE 210 mg/dL (74-106); POTASSIUM 4.4 mmol/L (3.5-5.1); SODIUM SERUM 135 mmol/L (136-145)
[2020-08-24 06:34] LABS: UREA NITROGEN, BLOOD 63 mg/dL (7-18)
[2020-08-24 06:39] LABS: MAGNESIUM 2.4 mg/dL (1.8-2.4); PHOSPHORUS 4.3 mg/dL (2.5-4.9)
[2020-08-24 06:43] LABS: HEMOGLOBIN 7.1 g/dL (12.0-18.0)
[2020-08-24] MEDS: HEPARIN PER PHARMACY MC SCH (09:00)
[2020-08-24] MEDS: carvediloL 6.25 MG TAB PO SCH ×2 (09:00→20:59)
[2020-08-24] MEDS: cilostazoL 100 MG TAB PO SCH ×2 (09:00→20:58)
[2020-08-24] MEDS: DEXAMETHASONE 4 MG/ML VIAL IVP SCH (09:17)
[2020-08-24] MEDS: DOCUSATE 100 MG/10 ML UDC GT SCH (09:17)
[2020-08-24] MEDS: PANTOPRAZOLE 40 MG INJ VIAL IVP SCH (09:18)
[2020-08-24] MEDS: ASPIRIN 81 MG TAB.CHEW PO SCH (09:20)
[2020-08-24] MEDS: amLODIPine 5 MG TAB NG SCH (09:20)
[2020-08-24] MEDS: AZITHROMYCIN 500 MG in DEXTROSE 5% 250 ML IV SCH (10:45)
[2020-08-24] MEDS: MIDAZOLAM MDV 100 MG in NACL 0.9% 80 ML IV PRN ×2 (11:00→21:21)
[2020-08-24] MEDS: QUEtiapine FUMARATE 25 MG TAB NG SCH (20:58)
[2020-08-24] MEDS: ATORVASTATIN 20 MG TAB PO SCH (20:58)
[2020-08-24] MEDS ORDERED: QUEtiapine FUMARATE 25 MG TAB NG SCH (21:00)
[2020-08-25] VITALS (31 sets, daily range): BP systolic 133–178; BP diastolic 52–93
[2020-08-25] MEDS: ALBUTEROL SULFATE/IPRATROPIU 3 ML SOL IH SCH ×2 (01:29→19:25)
[2020-08-25 03:47] LABS: MAGNESIUM 2.2 mg/dL (1.8-2.4); PHOSPHORUS 3.5 mg/dL (2.5-4.9)
[2020-08-25 03:49] LABS: ANION GAP 8.8 (8-16); CARBON DIOXIDE 30.5 mmol/L (21-32); CHLORIDE 100 mmol/L (98-107); CREATININE 1.7 mg/dL (0.6-1.3); GLUCOSE 186 mg/dL (74-106); POTASSIUM 4.3 mmol/L (3.5-5.1); SODIUM SERUM 135 mmol/L (136-145)
[2020-08-25 03:52] LABS: BASOPHILS # (AUTO) 0.1 K/uL (0.00-0.22); BASOPHILS % (AUTO) 0.5 % (0.0-2.0); EOSINOPHILS # (AUTO) 0.5 K/uL (0-0.4); EOSINOPHILS % (AUTO) 3.4 % (0.0-4.0); HEMATOCRIT 23.8 % (36-52); HEMOGLOBIN 7.8 g/dL (12.0-18.0); LYMPHOCYTES # (AUTO) 0.7 K/uL (2.0-11.5); LYMPHOCYTES % (AUTO) 4.4 % (20.5-51.1); MEAN CORPUSCULAR HEMOGLOBIN 29 pg (27-31); MEAN CORPUSCULAR HGB CONC 33 g/dL (33-37); MEAN CORPUSCULAR VOLUME 89.2 fL (80-94); MONOCYTES % (AUTO) 6.7 % (1.7-9.3); NEUTROPHILS # (AUTO) 12.9 K/uL (1.8-7.7); PLATELET COUNT (AUTO) 304 K/uL (140-450); RED BLOOD CELL COUNT(AUTO) 2.67 MIL/uL (4.20-6.10); WHITE BLOOD COUNT (AUTO) 15.2 K/uL (4.8-10.8)
[2020-08-25 03:53] LABS: UREA NITROGEN, BLOOD 63 mg/dL (7-18)
[2020-08-25] MEDS: PIPERACILLIN/TAZOBACTAM 2.25 GM in DEXTROSE 5% 50 ML IV SCH ×3 (05:25→20:47)
[2020-08-25] MEDS: hePARIN / DEXT 5% PREMIX 250 ML IV SCH ×3 (06:43→19:16)
[2020-08-25] MEDS: HEPARIN PER PHARMACY MC SCH (09:00)
[2020-08-25] MEDS: DEXAMETHASONE 4 MG/ML VIAL IVP SCH (09:00)
[2020-08-25] MEDS: DOCUSATE 100 MG/10 ML UDC GT SCH (09:01)
[2020-08-25] MEDS: FUROSEMIDE 40 MG/4 ML VIAL IVP SCH (09:02)
[2020-08-25] MEDS: PANTOPRAZOLE 40 MG INJ VIAL IVP SCH (09:02)
[2020-08-25] MEDS: amLODIPine 5 MG TAB NG SCH (09:03)
[2020-08-25] MEDS: QUEtiapine FUMARATE 25 MG TAB NG SCH ×2 (09:03→21:07)
[2020-08-25] MEDS: ASPIRIN 81 MG TAB.CHEW PO SCH (09:03)
[2020-08-25] MEDS: carvediloL 6.25 MG TAB PO SCH ×2 (09:04→21:06)
[2020-08-25] MEDS: cilostazoL 100 MG TAB PO SCH ×2 (09:04→21:04)
[2020-08-25] MEDS: DEXMEDETOMIDINE HCL 400 MCG in NACL 0.9% 96 ML IV PRN ×2 (13:15→15:00)
[2020-08-25 18:19] LABS: PROTHROMBIN TIME 10.3 secs (10.8-13.4)
[2020-08-25] MEDS: fentaNYL citrate - 50mL vial 2.5 MG in NACL 0.9% 200 ML IV PRN (20:02)
[2020-08-25] MEDS: ATORVASTATIN 20 MG TAB PO SCH (21:07)
[2020-08-26] VITALS (31 sets, daily range): BP systolic 106–207; BP diastolic 42–105
[2020-08-26] MEDS: ALBUTEROL SULFATE/IPRATROPIU 3 ML SOL IH SCH ×3 (01:17→19:45)
[2020-08-26] MEDS: hePARIN / DEXT 5% PREMIX 250 ML IV SCH (02:47)
[2020-08-26] MEDS: PIPERACILLIN/TAZOBACTAM 2.25 GM in DEXTROSE 5% 50 ML IV SCH ×2 (05:11→13:41)
[2020-08-26 06:25] LABS: ANION GAP 11.7 (8-16); CARBON DIOXIDE 27.8 mmol/L (21-32); CHLORIDE 100 mmol/L (98-107); CREATININE 1.5 mg/dL (0.6-1.3); GLUCOSE 176 mg/dL (74-106); POTASSIUM 4.5 mmol/L (3.5-5.1); SODIUM SERUM 135 mmol/L (136-145); UREA NITROGEN, BLOOD 60 mg/dL (7-18)
[2020-08-26 06:31] LABS: BASOPHILS % (AUTO) 0.2 % (0.0-2.0); EOSINOPHILS # (AUTO) 0.1 K/uL (0-0.4); EOSINOPHILS % (AUTO) 0.6 % (0.0-4.0); HEMATOCRIT 24.8 % (36-52); HEMOGLOBIN 8.4 g/dL (12.0-18.0); LYMPHOCYTES # (AUTO) 1.2 K/uL (2.0-11.5); LYMPHOCYTES % (AUTO) 7.9 % (20.5-51.1); MEAN CORPUSCULAR HEMOGLOBIN 30 pg (27-31); MEAN CORPUSCULAR HGB CONC 34 g/dL (33-37); MEAN CORPUSCULAR VOLUME 89.1 fL (80-94); MONOCYTES # (AUTO) 1.2 K/uL (0.8-1.0); MONOCYTES % (AUTO) 7.7 % (1.7-9.3); NEUTROPHILS # (AUTO) 13.1 K/uL (1.8-7.7); NEUTROPHILS % (AUTO) 83.6 % (42.2-75.2); PLATELET COUNT (AUTO) 317 K/uL (140-450); RED BLOOD CELL COUNT(AUTO) 2.79 MIL/uL (4.20-6.10); RED CELL DISTRIBUTION WIDTH 14.2 % (11.6-13.7); WHITE BLOOD COUNT (AUTO) 15.7 K/uL (4.8-10.8)
[2020-08-26 06:59] LABS: PHOSPHORUS 3.5 mg/dL (2.5-4.9)
[2020-08-26] MEDS: HEPARIN PER PHARMACY MC SCH (09:00)
[2020-08-26] MEDS: DOCUSATE 100 MG/10 ML UDC GT SCH (09:10)
[2020-08-26] MEDS: PANTOPRAZOLE 40 MG INJ VIAL IVP SCH (09:10)
[2020-08-26] MEDS: ASPIRIN 81 MG TAB.CHEW PO SCH (09:11)
[2020-08-26] MEDS: FUROSEMIDE 40 MG/4 ML VIAL IVP SCH (09:11)
[2020-08-26] MEDS: QUEtiapine FUMARATE 25 MG TAB NG SCH (09:12)
[2020-08-26] MEDS: DEXAMETHASONE 4 MG/ML VIAL IVP SCH (09:12)
[2020-08-26] MEDS: carvediloL 6.25 MG TAB PO SCH (09:13)
[2020-08-26] MEDS: amLODIPine 5 MG TAB NG SCH (09:13)
[2020-08-26] MEDS: cilostazoL 100 MG TAB PO SCH (09:48)
[2020-08-26] MEDS: LABETALOL 100 MG/20 ML VIAL IV PRN (14:55)
[2020-08-26] MEDS: DEXMEDETOMIDINE HCL 400 MCG in NACL 0.9% 96 ML IV PRN ×2 (14:55→21:54)
[2020-08-26] MEDS: LORazepam 2 MG/ML VIAL IVP PRN ×2 (17:06→23:35)
[2020-08-26] MEDS ORDERED: DEXAMETHASONE 10 MG/ML VIAL ONE (22:58)
[2020-08-26] MEDS ORDERED: RACEPINEPHRINE 2.25% 13.5 MG/0.5 ML NEBU INH ONE (23:00)
[2020-08-27] VITALS (36 sets, daily range): BP systolic 99–172; BP diastolic 52–88
[2020-08-27] MEDS: cilostazoL 100 MG TAB PO SCH ×3 (00:08→20:46)
[2020-08-27] MEDS: carvediloL 6.25 MG TAB PO SCH ×3 (00:08→20:45)
[2020-08-27] MEDS: QUEtiapine FUMARATE 25 MG TAB NG SCH ×3 (00:08→20:43)
[2020-08-27] MEDS: ATORVASTATIN 20 MG TAB PO SCH ×2 (00:08→20:43)
[2020-08-27] MEDS ORDERED: PROPOFOL 1000 MG/100 ML PREMIX 100 ML IV ONE (00:39)
[2020-08-27] MEDS: hePARIN / DEXT 5% PREMIX 250 ML IV SCH (00:55)
[2020-08-27] MEDS: DEXMEDETOMIDINE HCL 400 MCG in NACL 0.9% 96 ML IV PRN ×5 (05:39→23:55)
[2020-08-27 06:01] LABS: HEMATOCRIT 27.7 % (36-52); HEMOGLOBIN 9.1 g/dL (12.0-18.0); MEAN CORPUSCULAR HEMOGLOBIN 30 pg (27-31); MEAN CORPUSCULAR HGB CONC 33 g/dL (33-37); MEAN CORPUSCULAR VOLUME 91.9 fL (80-94); PLATELET COUNT (AUTO) 341 K/uL (140-450); RED BLOOD CELL COUNT(AUTO) 3.02 MIL/uL (4.20-6.10); RED CELL DISTRIBUTION WIDTH 14.2 % (11.6-13.7)
[2020-08-27 06:14] LABS: MAGNESIUM 2.2 mg/dL (1.8-2.4); PHOSPHORUS 6.3 mg/dL (2.5-4.9)
[2020-08-27 06:16] LABS: ANION GAP 14.8 (8-16); CARBON DIOXIDE 26.8 mmol/L (21-32); CHLORIDE 99 mmol/L (98-107); CREATININE 1.7 mg/dL (0.6-1.3); GLUCOSE 155 mg/dL (74-106); POTASSIUM 5.6 mmol/L (3.5-5.1); SODIUM SERUM 135 mmol/L (136-145)
[2020-08-27 06:48] LABS: UREA NITROGEN, BLOOD 63 mg/dL (7-18)
[2020-08-27] MEDS: PROPOFOL 1000 MG/100 ML PREMIX 100 ML IV PRN ×2 (07:00→19:43)
[2020-08-27 07:18] LABS: WHITE BLOOD COUNT (AUTO) 27.1 K/uL (4.8-10.8)
[2020-08-27 07:19] LABS: LYMPHOCYTES % (MANUAL) 5 % (20-46); MONOCYTES % (MANUAL) 8 % (5-12)
[2020-08-27] MEDS: ALBUTEROL SULFATE/IPRATROPIU 3 ML SOL IH SCH ×3 (07:41→19:10)
[2020-08-27] MEDS: ASPIRIN 81 MG TAB.CHEW PO SCH (08:35)
[2020-08-27] MEDS: FUROSEMIDE 40 MG/4 ML VIAL IVP SCH (08:36)
[2020-08-27] MEDS: DEXAMETHASONE 4 MG/ML VIAL IVP SCH (08:37)
[2020-08-27] MEDS: PANTOPRAZOLE 40 MG INJ VIAL IVP SCH ×2 (08:37→20:46)
[2020-08-27] MEDS: DOCUSATE 100 MG/10 ML UDC GT SCH (08:37)
[2020-08-27] MEDS ORDERED: amLODIPine 5 MG TAB NG SCH (09:00)
[2020-08-27 12:00] LABS: BASOPHILS % (AUTO) 0.1 % (0.0-2.0); EOSINOPHILS % (AUTO) 0.1 % (0.0-4.0); HEMATOCRIT 27.8 % (36-52); HEMOGLOBIN 8.9 g/dL (12.0-18.0); LYMPHOCYTES % (AUTO) 3.8 % (20.5-51.1); MEAN CORPUSCULAR HEMOGLOBIN 28 pg (27-31); MEAN CORPUSCULAR HGB CONC 32 g/dL (33-37); MEAN CORPUSCULAR VOLUME 88.2 fL (80-94); MONOCYTES % (AUTO) 3.7 % (1.7-9.3); NEUTROPHILS % (AUTO) 92.3 % (42.2-75.2); PLATELET COUNT (AUTO) 332 K/uL (140-450); RED BLOOD CELL COUNT(AUTO) 3.15 MIL/uL (4.20-6.10); RED CELL DISTRIBUTION WIDTH 14.1 % (11.6-13.7)
[2020-08-27] MEDS ORDERED: SODIUM ZIRCONIUM CYCLOSILICATE 10 GM POWD.PACK NG SCH (12:54)
[2020-08-27] MEDS: DEXT 5% / NACL 0.9% 500 ML IV SCH (13:05)
[2020-08-27] MEDS: hydrALAZINE 20 MG/ML VIAL IVP PRN (17:22)
[2020-08-27 20:06] LABS: BASOPHILS % (AUTO) 0.1 % (0.0-2.0); EOSINOPHILS # (AUTO) 0.1 K/uL (0-0.4); EOSINOPHILS % (AUTO) 0.5 % (0.0-4.0); LYMPHOCYTES # (AUTO) 1.2 K/uL (2.0-11.5); LYMPHOCYTES % (AUTO) 5.9 % (20.5-51.1); MEAN CORPUSCULAR HEMOGLOBIN 29 pg (27-31); MEAN CORPUSCULAR HGB CONC 33 g/dL (33-37); MEAN CORPUSCULAR VOLUME 87.9 fL (80-94); MONOCYTES % (AUTO) 4.9 % (1.7-9.3); NEUTROPHILS # (AUTO) 18.5 K/uL (1.8-7.7); NEUTROPHILS % (AUTO) 88.6 % (42.2-75.2); PLATELET COUNT (AUTO) 316 K/uL (140-450); RED BLOOD CELL COUNT(AUTO) 2.74 MIL/uL (4.20-6.10); RED CELL DISTRIBUTION WIDTH 14.2 % (11.6-13.7); WHITE BLOOD COUNT (AUTO) 20.9 K/uL (4.8-10.8)
[2020-08-28] VITALS (31 sets, daily range): BP systolic 99–177; BP diastolic 48–84
[2020-08-28] MEDS: ALBUTEROL SULFATE/IPRATROPIU 3 ML SOL IH SCH ×4 (01:37→19:10)
[2020-08-28] MEDS: DEXT 5% / NACL 0.9% 500 ML IV SCH ×5 (01:38→22:10)
[2020-08-28] MEDS: hydrALAZINE 20 MG/ML VIAL IVP PRN ×2 (02:36→18:00)
[2020-08-28 06:13] LABS: ANION GAP 10.3 (8-16); CARBON DIOXIDE 27.9 mmol/L (21-32); CHLORIDE 104 mmol/L (98-107); CREATININE 1.3 mg/dL (0.6-1.3); GLUCOSE 146 mg/dL (74-106); POTASSIUM 4.2 mmol/L (3.5-5.1); SODIUM SERUM 138 mmol/L (136-145); UREA NITROGEN, BLOOD 58 mg/dL (7-18)
[2020-08-28 06:18] LABS: BASOPHILS % (AUTO) 0.2 % (0.0-2.0); EOSINOPHILS % (AUTO) 0.1 % (0.0-4.0); HEMATOCRIT 24.2 % (36-52); HEMOGLOBIN 7.8 g/dL (12.0-18.0); LYMPHOCYTES # (AUTO) 1.4 K/uL (2.0-11.5); LYMPHOCYTES % (AUTO) 8.3 % (20.5-51.1); MEAN CORPUSCULAR HEMOGLOBIN 29 pg (27-31); MEAN CORPUSCULAR HGB CONC 32 g/dL (33-37); MEAN CORPUSCULAR VOLUME 89.2 fL (80-94); MONOCYTES # (AUTO) 1.1 K/uL (0.8-1.0); MONOCYTES % (AUTO) 6.6 % (1.7-9.3); NEUTROPHILS # (AUTO) 14.1 K/uL (1.8-7.7); NEUTROPHILS % (AUTO) 84.8 % (42.2-75.2); PLATELET COUNT (AUTO) 314 K/uL (140-450); RED BLOOD CELL COUNT(AUTO) 2.71 MIL/uL (4.20-6.10); RED CELL DISTRIBUTION WIDTH 14.2 % (11.6-13.7); WHITE BLOOD COUNT (AUTO) 16.6 K/uL (4.8-10.8)
[2020-08-28 06:28] LABS: MAGNESIUM 2.4 mg/dL (1.8-2.4); PHOSPHORUS 4.7 mg/dL (2.5-4.9)
[2020-08-28] MEDS: DEXMEDETOMIDINE HCL 400 MCG in NACL 0.9% 96 ML IV PRN ×2 (08:40→10:26)
[2020-08-28] MEDS: DOCUSATE 100 MG/10 ML UDC GT SCH (10:12)
[2020-08-28] MEDS: ASPIRIN 81 MG TAB.CHEW PO SCH (10:13)
[2020-08-28] MEDS: QUEtiapine FUMARATE 25 MG TAB NG SCH ×2 (10:13→22:38)
[2020-08-28] MEDS: carvediloL 6.25 MG TAB PO SCH ×2 (10:13→22:42)
[2020-08-28] MEDS: DEXAMETHASONE 4 MG/ML VIAL IVP SCH (10:14)
[2020-08-28] MEDS: PANTOPRAZOLE 40 MG INJ VIAL IVP SCH ×2 (10:15→22:33)
[2020-08-28] MEDS: FUROSEMIDE 40 MG/4 ML VIAL IVP SCH (10:19)
[2020-08-28] MEDS: cilostazoL 100 MG TAB PO SCH ×2 (10:19→22:46)
[2020-08-28] MEDS ORDERED: DOCUSATE SOD/SENNA 50/8.6 MG 1 TAB PO PRN (17:55)
[2020-08-28] MEDS: ATORVASTATIN 20 MG TAB PO SCH (22:37)
[2020-08-28] MEDS: LACTULOSE 20 GM/30 ML UDC PO SCH (22:39)
[2020-08-28] MEDS: POLYETHYLENE GLYCOL 17 GM/PKT PO SCH (22:40)
[2020-08-29] VITALS (31 sets, daily range): BP systolic 62–149; BP diastolic 22–74
[2020-08-29] MEDS: ALBUTEROL SULFATE/IPRATROPIU 3 ML SOL IH SCH ×4 (01:09→19:39)
[2020-08-29] MEDS: hydrALAZINE 20 MG/ML VIAL IVP PRN ×4 (01:31→05:05)
[2020-08-29] MEDS: DEXMEDETOMIDINE HCL 400 MCG in NACL 0.9% 96 ML IV PRN ×4 (02:08→21:17)
[2020-08-29] MEDS: PROPOFOL 1000 MG/100 ML PREMIX 100 ML IV PRN (03:35)
[2020-08-29] MEDS: DEXT 5% / NACL 0.9% 500 ML IV SCH ×2 (05:04→20:30)
[2020-08-29 07:04] LABS: BASOPHILS # (AUTO) 0.1 K/uL (0.00-0.22); BASOPHILS % (AUTO) 0.4 % (0.0-2.0); EOSINOPHILS % (AUTO) 0.1 % (0.0-4.0); HEMATOCRIT 20.9 % (36-52); LYMPHOCYTES # (AUTO) 1.1 K/uL (2.0-11.5); LYMPHOCYTES % (AUTO) 7.6 % (20.5-51.1); MEAN CORPUSCULAR HEMOGLOBIN 29 pg (27-31); MEAN CORPUSCULAR HGB CONC 33 g/dL (33-37); MEAN CORPUSCULAR VOLUME 88.9 fL (80-94); MONOCYTES # (AUTO) 0.9 K/uL (0.8-1.0); MONOCYTES % (AUTO) 6.2 % (1.7-9.3); NEUTROPHILS # (AUTO) 12.2 K/uL (1.8-7.7); NEUTROPHILS % (AUTO) 85.7 % (42.2-75.2); PLATELET COUNT (AUTO) 278 K/uL (140-450); RED BLOOD CELL COUNT(AUTO) 2.36 MIL/uL (4.20-6.10); RED CELL DISTRIBUTION WIDTH 14.4 % (11.6-13.7); WHITE BLOOD COUNT (AUTO) 14.2 K/uL (4.8-10.8)
[2020-08-29 07:33] LABS: ANION GAP 11.3 (8-16); CARBON DIOXIDE 27.6 mmol/L (21-32); CHLORIDE 106 mmol/L (98-107); CREATININE 1.3 mg/dL (0.6-1.3); GLUCOSE 149 mg/dL (74-106); POTASSIUM 3.9 mmol/L (3.5-5.1); SODIUM SERUM 141 mmol/L (136-145); UREA NITROGEN, BLOOD 49 mg/dL (7-18)
[2020-08-29 08:00] LABS: HEMOGLOBIN 6.9 g/dL (12.0-18.0)
[2020-08-29 09:02] LABS: MAGNESIUM 2.2 mg/dL (1.8-2.4); PHOSPHORUS 3.9 mg/dL (2.5-4.9)
[2020-08-29] MEDS: LACTULOSE 20 GM/30 ML UDC PO SCH ×2 (09:43→20:51)
[2020-08-29] MEDS: PANTOPRAZOLE 40 MG INJ VIAL IVP SCH ×2 (09:44→20:48)
[2020-08-29] MEDS: FUROSEMIDE 40 MG/4 ML VIAL IVP SCH (09:45)
[2020-08-29] MEDS: QUEtiapine FUMARATE 25 MG TAB NG SCH ×2 (09:45→20:49)
[2020-08-29] MEDS: DEXAMETHASONE 4 MG/ML VIAL IVP SCH (09:45)
[2020-08-29] MEDS: carvediloL 6.25 MG TAB PO SCH ×2 (09:46→20:50)
[2020-08-29] MEDS: POLYETHYLENE GLYCOL 17 GM/PKT PO SCH ×2 (09:46→20:51)
[2020-08-29] MEDS: ASPIRIN 81 MG TAB.CHEW PO SCH (09:46)
[2020-08-29] MEDS: DOCUSATE 100 MG/10 ML UDC GT SCH (09:46)
[2020-08-29] MEDS: cilostazoL 100 MG TAB PO SCH ×2 (09:52→21:19)
[2020-08-29 19:33] LABS: HEMATOCRIT 24.3 % (36-52); HEMOGLOBIN 7.9 g/dL (12.0-18.0); LYMPHOCYTES # (AUTO) 0.9 K/uL (2.0-11.5); LYMPHOCYTES % (AUTO) 5.8 % (20.5-51.1); MEAN CORPUSCULAR HEMOGLOBIN 29 pg (27-31); MEAN CORPUSCULAR HGB CONC 32 g/dL (33-37); MEAN CORPUSCULAR VOLUME 88.6 fL (80-94); MONOCYTES # (AUTO) 0.6 K/uL (0.8-1.0); MONOCYTES % (AUTO) 4.2 % (1.7-9.3); NEUTROPHILS # (AUTO) 13.5 K/uL (1.8-7.7); PLATELET COUNT (AUTO) 288 K/uL (140-450); RED BLOOD CELL COUNT(AUTO) 2.74 MIL/uL (4.20-6.10); RED CELL DISTRIBUTION WIDTH 14.4 % (11.6-13.7)
[2020-08-29] MEDS: ATORVASTATIN 20 MG TAB PO SCH (20:50)
[2020-08-30] VITALS (46 sets, daily range): BP systolic 41–196; BP diastolic 21–99
[2020-08-30] MEDS ORDERED: EPINEPHrine PFS 0.1 MG/ML SYR IVP ONE
[2020-08-30] MEDS ORDERED: ATROPINE 1 MG/10 ML SYR IVP ONE
[2020-08-30] MEDS: DEXT 5% / NACL 0.9% 500 ML IV SCH ×4 (00:50→20:50)
[2020-08-30] MEDS: ALBUTEROL SULFATE/IPRATROPIU 3 ML SOL IH SCH ×4 (01:31→19:45)
[2020-08-30] MEDS: PROPOFOL 1000 MG/100 ML PREMIX 100 ML IV PRN ×2 (01:49→14:50)
[2020-08-30] MEDS: DEXMEDETOMIDINE HCL 400 MCG in NACL 0.9% 96 ML IV PRN ×3 (01:50→16:00)
[2020-08-30 05:59] LABS: BASOPHILS % (AUTO) 0.3 % (0.0-2.0); EOSINOPHILS % (AUTO) 0.2 % (0.0-4.0); HEMATOCRIT 23.9 % (36-52); HEMOGLOBIN 7.9 g/dL (12.0-18.0); LYMPHOCYTES # (AUTO) 0.9 K/uL (2.0-11.5); LYMPHOCYTES % (AUTO) 8.6 % (20.5-51.1); MEAN CORPUSCULAR HEMOGLOBIN 30 pg (27-31); MEAN CORPUSCULAR HGB CONC 33 g/dL (33-37); MEAN CORPUSCULAR VOLUME 90.7 fL (80-94); MONOCYTES # (AUTO) 0.8 K/uL (0.8-1.0); MONOCYTES % (AUTO) 7.8 % (1.7-9.3); NEUTROPHILS # (AUTO) 8.7 K/uL (1.8-7.7); NEUTROPHILS % (AUTO) 83.1 % (42.2-75.2); PLATELET COUNT (AUTO) 263 K/uL (140-450); RED BLOOD CELL COUNT(AUTO) 2.63 MIL/uL (4.20-6.10); RED CELL DISTRIBUTION WIDTH 14.2 % (11.6-13.7); WHITE BLOOD COUNT (AUTO) 10.4 K/uL (4.8-10.8)
[2020-08-30 06:21] LABS: ALBUMIN 1.7 g/dL (3.4-5.0); ANION GAP 11.9 (8-16); ASPARTATE AMINOTRANSFERASE 29 U/L (15-37); CARBON DIOXIDE 26.8 mmol/L (21-32); CHLORIDE 107 mmol/L (98-107); CREATININE 1.2 mg/dL (0.6-1.3); GLUCOSE 146 mg/dL (74-106); POTASSIUM 3.7 mmol/L (3.5-5.1); SODIUM SERUM 142 mmol/L (136-145); TOTAL BILIRUBIN 0.6 mg/dL (0.0-1.0); UREA NITROGEN, BLOOD 43 mg/dL (7-18)
[2020-08-30] MEDS: LACTULOSE 20 GM/30 ML UDC PO SCH ×3 (09:00→21:00)
[2020-08-30] MEDS: cilostazoL 100 MG TAB PO SCH ×3 (09:00→21:51)
[2020-08-30] MEDS: FUROSEMIDE 40 MG/4 ML VIAL IVP SCH ×2 (09:00→09:46)
[2020-08-30] MEDS: POLYETHYLENE GLYCOL 17 GM/PKT PO SCH ×3 (09:00→21:00)
[2020-08-30] MEDS: QUEtiapine FUMARATE 25 MG TAB NG SCH ×3 (09:00→21:52)
[2020-08-30] MEDS: DOCUSATE 100 MG/10 ML UDC GT SCH ×2 (09:00→09:43)
[2020-08-30] MEDS: PANTOPRAZOLE 40 MG INJ VIAL IVP SCH ×2 (09:45→21:54)
[2020-08-30] MEDS: DEXAMETHASONE 4 MG/ML VIAL IVP SCH (09:46)
[2020-08-30] MEDS: ASPIRIN 81 MG TAB.CHEW PO SCH (09:47)
[2020-08-30] MEDS: carvediloL 6.25 MG TAB PO SCH (09:47)
[2020-08-30] MEDS ORDERED: ALBUMIN HUMAN 25% 100 ML IV ONE (10:05)
[2020-08-30] MEDS ORDERED: NOREPINEPHRINE 4 MG in DEXTROSE 5% 250 ML IV PRN (10:10)
[2020-08-30] MEDS ORDERED: ALBUMIN HUMAN 25% 100 ML IV SCH ×2 (10:30→11:00)
[2020-08-30] MEDS ORDERED: VANCOMYCIN PER PHARMACY MC PRN (10:40)
[2020-08-30] MEDS ORDERED: VANCOMYCIN 1,000 MG in DEXTROSE 5% 250 ML IV SCH (13:00)
[2020-08-30] MEDS: MEROPENEM 500 MG in NACL 0.9% 50 ML IV SCH ×2 (13:20→21:56)
[2020-08-30] MEDS: LABETALOL 100 MG/20 ML VIAL IV PRN ×3 (14:48→15:16)
[2020-08-30] MEDS: LORazepam 2 MG/ML VIAL IVP PRN (14:52)
[2020-08-30 16:24] LABS: EOSINOPHILS % (AUTO) 0.1 % (0.0-4.0); HEMATOCRIT 26.7 % (36-52); HEMOGLOBIN 8.4 g/dL (12.0-18.0); LYMPHOCYTES # (AUTO) 0.4 K/uL (2.0-11.5); LYMPHOCYTES % (AUTO) 1.7 % (20.5-51.1); MEAN CORPUSCULAR HEMOGLOBIN 29 pg (27-31); MEAN CORPUSCULAR HGB CONC 32 g/dL (33-37); MEAN CORPUSCULAR VOLUME 90.4 fL (80-94); MONOCYTES % (AUTO) 4.4 % (1.7-9.3); NEUTROPHILS # (AUTO) 20.8 K/uL (1.8-7.7); NEUTROPHILS % (AUTO) 93.8 % (42.2-75.2); PLATELET COUNT (AUTO) 254 K/uL (140-450); RED BLOOD CELL COUNT(AUTO) 2.95 MIL/uL (4.20-6.10); RED CELL DISTRIBUTION WIDTH 15.1 % (11.6-13.7); WHITE BLOOD COUNT (AUTO) 22.1 K/uL (4.8-10.8)
[2020-08-30] MEDS ORDERED: MIDAZOLAM MDV 100 MG in NACL 0.9% 80 ML IV PRN (17:10)
[2020-08-30] MEDS ORDERED: diphenhydrAMINE 50 MG/ML VIAL IVP SCH (17:10)
[2020-08-30] MEDS: ATORVASTATIN 20 MG TAB PO SCH (21:00)
[2020-08-31] VITALS (32 sets, daily range): BP systolic 124–170; BP diastolic 50–83
[2020-08-31] MEDS: ALBUTEROL SULFATE/IPRATROPIU 3 ML SOL IH SCH ×2 (01:00→19:36)
[2020-08-31] MEDS: PROPOFOL 1000 MG/100 ML PREMIX 100 ML IV PRN ×2 (02:40→11:28)
[2020-08-31] MEDS: DEXT 5% / NACL 0.9% 500 ML IV SCH ×2 (03:30→10:27)
[2020-08-31] MEDS: DEXMEDETOMIDINE HCL 400 MCG in NACL 0.9% 96 ML IV PRN ×5 (05:33→23:29)
[2020-08-31 06:36] LABS: BASOPHILS % (AUTO) 0.1 % (0.0-2.0); EOSINOPHILS % (AUTO) 0.2 % (0.0-4.0); HEMOGLOBIN 7.6 g/dL (12.0-18.0); LYMPHOCYTES # (AUTO) 1.1 K/uL (2.0-11.5); LYMPHOCYTES % (AUTO) 5.4 % (20.5-51.1); MEAN CORPUSCULAR HEMOGLOBIN 29 pg (27-31); MEAN CORPUSCULAR HGB CONC 32 g/dL (33-37); MEAN CORPUSCULAR VOLUME 89.8 fL (80-94); MONOCYTES # (AUTO) 0.6 K/uL (0.8-1.0); MONOCYTES % (AUTO) 3.1 % (1.7-9.3); NEUTROPHILS # (AUTO) 18.3 K/uL (1.8-7.7); NEUTROPHILS % (AUTO) 91.2 % (42.2-75.2); PLATELET COUNT (AUTO) 241 K/uL (140-450); RED BLOOD CELL COUNT(AUTO) 2.67 MIL/uL (4.20-6.10); RED CELL DISTRIBUTION WIDTH 14.9 % (11.6-13.7); WHITE BLOOD COUNT (AUTO) 20.1 K/uL (4.8-10.8)
[2020-08-31 06:41] LABS: ALBUMIN 2.6 g/dL (3.4-5.0); ANION GAP 12.7 (8-16); ASPARTATE AMINOTRANSFERASE 58 U/L (15-37); CHLORIDE 106 mmol/L (98-107); CREATININE 1.4 mg/dL (0.6-1.3); GLUCOSE 172 mg/dL (74-106); POTASSIUM 3.7 mmol/L (3.5-5.1); SODIUM SERUM 141 mmol/L (136-145); TOTAL BILIRUBIN 0.7 mg/dL (0.0-1.0); UREA NITROGEN, BLOOD 40 mg/dL (7-18)
[2020-08-31] MEDS: MEROPENEM 500 MG in NACL 0.9% 50 ML IV SCH ×2 (08:43→21:02)
[2020-08-31] MEDS: DOCUSATE 100 MG/10 ML UDC GT SCH (08:43)
[2020-08-31] MEDS: DEXAMETHASONE 4 MG/ML VIAL IVP SCH (08:44)
[2020-08-31] MEDS: FUROSEMIDE 40 MG/4 ML VIAL IVP SCH (08:44)
[2020-08-31] MEDS: PANTOPRAZOLE 40 MG INJ VIAL IVP SCH ×2 (08:45→21:02)
[2020-08-31] MEDS: LACTULOSE 20 GM/30 ML UDC PO SCH ×2 (08:45→21:03)
[2020-08-31] MEDS: ASPIRIN 81 MG TAB.CHEW PO SCH (08:45)
[2020-08-31] MEDS: QUEtiapine FUMARATE 25 MG TAB NG SCH ×2 (08:45→21:02)
[2020-08-31] MEDS: POLYETHYLENE GLYCOL 17 GM/PKT PO SCH ×2 (08:46→21:03)
[2020-08-31] MEDS: cilostazoL 100 MG TAB PO SCH ×2 (08:46→21:04)
[2020-08-31] MEDS ORDERED: VANCOMYCIN 1,000 MG in DEXTROSE 5% 250 ML IV SCH (14:00)
[2020-08-31] MEDS: ATORVASTATIN 20 MG TAB PO SCH (21:03)
[2020-09-01] VITALS (35 sets, daily range): BP systolic 107–185; BP diastolic 52–124
[2020-09-01] MEDS: ALBUTEROL SULFATE/IPRATROPIU 3 ML SOL IH SCH ×2 (01:27→07:00)
[2020-09-01] MEDS: DEXMEDETOMIDINE HCL 400 MCG in NACL 0.9% 96 ML IV PRN ×4 (04:10→20:59)
[2020-09-01 05:25] LABS: BASOPHILS # (AUTO) 0.1 K/uL (0.00-0.22); BASOPHILS % (AUTO) 0.5 % (0.0-2.0); EOSINOPHILS # (AUTO) 0.1 K/uL (0-0.4); EOSINOPHILS % (AUTO) 0.7 % (0.0-4.0); HEMATOCRIT 24.9 % (36-52); HEMOGLOBIN 8.1 g/dL (12.0-18.0); LYMPHOCYTES % (AUTO) 7.1 % (20.5-51.1); MEAN CORPUSCULAR HEMOGLOBIN 29 pg (27-31); MEAN CORPUSCULAR HGB CONC 33 g/dL (33-37); MEAN CORPUSCULAR VOLUME 89.9 fL (80-94); MONOCYTES # (AUTO) 0.5 K/uL (0.8-1.0); MONOCYTES % (AUTO) 3.7 % (1.7-9.3); NEUTROPHILS # (AUTO) 12.5 K/uL (1.8-7.7); PLATELET COUNT (AUTO) 226 K/uL (140-450); RED BLOOD CELL COUNT(AUTO) 2.78 MIL/uL (4.20-6.10); RED CELL DISTRIBUTION WIDTH 14.9 % (11.6-13.7); WHITE BLOOD COUNT (AUTO) 14.2 K/uL (4.8-10.8)
[2020-09-01 06:21] LABS: ALBUMIN 2.4 g/dL (3.4-5.0); ANION GAP 12.9 (8-16); ASPARTATE AMINOTRANSFERASE 40 U/L (15-37); CARBON DIOXIDE 24.6 mmol/L (21-32); CHLORIDE 107 mmol/L (98-107); CREATININE 1.1 mg/dL (0.6-1.3); GLUCOSE 150 mg/dL (74-106); POTASSIUM 3.5 mmol/L (3.5-5.1); SODIUM SERUM 141 mmol/L (136-145); TOTAL BILIRUBIN 0.7 mg/dL (0.0-1.0); UREA NITROGEN, BLOOD 38 mg/dL (7-18)
[2020-09-01] MEDS: MEROPENEM 500 MG in NACL 0.9% 50 ML IV SCH ×2 (08:37→20:56)
[2020-09-01] MEDS: PROPOFOL 1000 MG/100 ML PREMIX 100 ML IV PRN (08:37)
[2020-09-01] MEDS: PANTOPRAZOLE 40 MG INJ VIAL IVP SCH ×2 (09:00→20:54)
[2020-09-01] MEDS: DEXAMETHASONE 4 MG/ML VIAL IVP SCH (09:00)
[2020-09-01] MEDS: cilostazoL 100 MG TAB PO SCH ×2 (09:00→20:56)
[2020-09-01] MEDS: POLYETHYLENE GLYCOL 17 GM/PKT PO SCH ×2 (09:00→20:55)
[2020-09-01] MEDS: QUEtiapine FUMARATE 25 MG TAB NG SCH ×2 (09:00→20:53)
[2020-09-01] MEDS: ASPIRIN 81 MG TAB.CHEW PO SCH (09:00)
[2020-09-01] MEDS: DOCUSATE 100 MG/10 ML UDC GT SCH (09:00)
[2020-09-01] MEDS: FUROSEMIDE 40 MG/4 ML VIAL IVP SCH (09:00)
[2020-09-01] MEDS: LACTULOSE 20 GM/30 ML UDC PO SCH ×2 (09:00→20:55)
[2020-09-01] MEDS ORDERED: VANCOMYCIN 1,000 MG in DEXTROSE 5% 250 ML IV SCH (15:00)
[2020-09-01] MEDS: ATORVASTATIN 20 MG TAB PO SCH (20:54)
[2020-09-01] MEDS: hydrALAZINE 20 MG/ML VIAL IVP PRN (21:27)
[2020-09-02] VITALS (38 sets, daily range): BP systolic 100–194; BP diastolic 50–89
[2020-09-02] MEDS: ALBUTEROL SULFATE/IPRATROPIU 3 ML SOL IH SCH ×4 (01:00→19:30)
[2020-09-02] MEDS: LORazepam 2 MG/ML VIAL IVP PRN ×3 (01:32→14:26)
[2020-09-02] MEDS: PROPOFOL 1000 MG/100 ML PREMIX 100 ML IV PRN ×2 (03:38→06:35)
[2020-09-02] MEDS: DEXMEDETOMIDINE HCL 400 MCG in NACL 0.9% 96 ML IV PRN ×3 (03:39→17:51)
[2020-09-02 06:14] LABS: PLATELET COUNT (AUTO) 236 K/uL (140-450)
[2020-09-02 06:23] LABS: ALBUMIN 2.3 g/dL (3.4-5.0); ANION GAP 10.6 (8-16); ASPARTATE AMINOTRANSFERASE 31 U/L (15-37); CARBON DIOXIDE 28.2 mmol/L (21-32); CHLORIDE 106 mmol/L (98-107); CREATININE 1.3 mg/dL (0.6-1.3); GLUCOSE 117 mg/dL (74-106); POTASSIUM 3.8 mmol/L (3.5-5.1); SODIUM SERUM 141 mmol/L (136-145); TOTAL BILIRUBIN 0.6 mg/dL (0.0-1.0); UREA NITROGEN, BLOOD 38 mg/dL (7-18)
[2020-09-02 06:32] LABS: BASOPHILS # (AUTO) 0.1 K/uL (0.00-0.22); BASOPHILS % (AUTO) 0.4 % (0.0-2.0); EOSINOPHILS # (AUTO) 0.1 K/uL (0-0.4); EOSINOPHILS % (AUTO) 0.3 % (0.0-4.0); HEMATOCRIT 25.6 % (36-52); HEMOGLOBIN 8.3 g/dL (12.0-18.0); LYMPHOCYTES # (AUTO) 0.9 K/uL (2.0-11.5); LYMPHOCYTES % (AUTO) 4.7 % (20.5-51.1); MEAN CORPUSCULAR HEMOGLOBIN 29 pg (27-31); MEAN CORPUSCULAR HGB CONC 32 g/dL (33-37); MEAN CORPUSCULAR VOLUME 90.8 fL (80-94); MONOCYTES % (AUTO) 5.3 % (1.7-9.3); NEUTROPHILS # (AUTO) 17.6 K/uL (1.8-7.7); NEUTROPHILS % (AUTO) 89.3 % (42.2-75.2); RED BLOOD CELL COUNT(AUTO) 2.82 MIL/uL (4.20-6.10); WHITE BLOOD COUNT (AUTO) 19.7 K/uL (4.8-10.8)
[2020-09-02] MEDS ORDERED: fentaNYL citrate 1 MG in NACL 0.9% 80 ML IV PRN (07:45)
[2020-09-02] MEDS: MEROPENEM 500 MG in NACL 0.9% 50 ML IV SCH ×2 (09:00→20:43)
[2020-09-02] MEDS: PANTOPRAZOLE 40 MG INJ VIAL IVP SCH ×2 (09:56→20:46)
[2020-09-02] MEDS: FUROSEMIDE 40 MG/4 ML VIAL IVP SCH (09:56)
[2020-09-02] MEDS: DOCUSATE 100 MG/10 ML UDC GT SCH (09:56)
[2020-09-02] MEDS: QUEtiapine FUMARATE 25 MG TAB NG SCH ×2 (09:56→20:45)
[2020-09-02] MEDS: DEXAMETHASONE 4 MG/ML VIAL IVP SCH (09:56)
[2020-09-02] MEDS: cilostazoL 100 MG TAB PO SCH ×2 (09:57→20:46)
[2020-09-02] MEDS: POLYETHYLENE GLYCOL 17 GM/PKT PO SCH ×2 (09:57→20:50)
[2020-09-02] MEDS: LACTULOSE 20 GM/30 ML UDC PO SCH ×2 (09:57→20:47)
[2020-09-02] MEDS: ASPIRIN 81 MG TAB.CHEW PO SCH (09:57)
[2020-09-02] MEDS: LABETALOL 100 MG/20 ML VIAL IV PRN (13:14)
[2020-09-02] MEDS: hydrALAZINE 20 MG/ML VIAL IVP PRN (14:35)
[2020-09-02] MEDS: VANCOMYCIN HCL 1.25 GM in DEXTROSE 5% 250 ML IV SCH (16:00)
[2020-09-02] MEDS: ATORVASTATIN 20 MG TAB PO SCH (20:44)
[2020-09-02] MEDS: DEXMEDETOMIDINE HCL 400 MCG in DEXTROSE 5% 96 ML IV PRN (21:14)
[2020-09-03] VITALS (36 sets, daily range): BP systolic 62–178; BP diastolic 37–85
[2020-09-03] MEDS: ALBUTEROL SULFATE/IPRATROPIU 3 ML SOL IH SCH ×4 (01:35→19:00)
[2020-09-03] MEDS: DEXMEDETOMIDINE HCL 400 MCG in DEXTROSE 5% 96 ML IV PRN ×4 (01:52→15:17)
[2020-09-03 05:31] LABS: BASOPHILS # (AUTO) 0.1 K/uL (0.00-0.22); BASOPHILS % (AUTO) 1.4 % (0.0-2.0); EOSINOPHILS # (AUTO) 0.1 K/uL (0-0.4); EOSINOPHILS % (AUTO) 0.8 % (0.0-4.0); HEMATOCRIT 26.1 % (36-52); HEMOGLOBIN 8.7 g/dL (12.0-18.0); LYMPHOCYTES # (AUTO) 1.1 K/uL (2.0-11.5); LYMPHOCYTES % (AUTO) 10.8 % (20.5-51.1); MEAN CORPUSCULAR HEMOGLOBIN 30 pg (27-31); MEAN CORPUSCULAR HGB CONC 33 g/dL (33-37); MEAN CORPUSCULAR VOLUME 90.8 fL (80-94); MONOCYTES # (AUTO) 0.5 K/uL (0.8-1.0); MONOCYTES % (AUTO) 4.9 % (1.7-9.3); NEUTROPHILS % (AUTO) 82.1 % (42.2-75.2); PLATELET COUNT (AUTO) 212 K/uL (140-450); RED BLOOD CELL COUNT(AUTO) 2.87 MIL/uL (4.20-6.10); RED CELL DISTRIBUTION WIDTH 14.9 % (11.6-13.7); WHITE BLOOD COUNT (AUTO) 9.8 K/uL (4.8-10.8)
[2020-09-03 05:33] LABS: ALBUMIN 2.2 g/dL (3.4-5.0); ANION GAP 14.5 (8-16); ASPARTATE AMINOTRANSFERASE 22 U/L (15-37); CARBON DIOXIDE 24.7 mmol/L (21-32); CHLORIDE 103 mmol/L (98-107); CREATININE 1.1 mg/dL (0.6-1.3); GLUCOSE 153 mg/dL (74-106); POTASSIUM 3.2 mmol/L (3.5-5.1); SODIUM SERUM 139 mmol/L (136-145); TOTAL BILIRUBIN 0.8 mg/dL (0.0-1.0); UREA NITROGEN, BLOOD 38 mg/dL (7-18)
[2020-09-03 05:42] LABS: MAGNESIUM 1.9 mg/dL (1.8-2.4); PHOSPHORUS 2.9 mg/dL (2.5-4.9)
[2020-09-03] MEDS: LABETALOL 100 MG/20 ML VIAL IV PRN ×3 (08:28→09:35)
[2020-09-03] MEDS: POLYETHYLENE GLYCOL 17 GM/PKT PO SCH ×2 (08:32→21:16)
[2020-09-03] MEDS: PANTOPRAZOLE 40 MG INJ VIAL IVP SCH ×2 (08:32→21:16)
[2020-09-03] MEDS: LACTULOSE 20 GM/30 ML UDC PO SCH ×2 (08:32→21:16)
[2020-09-03] MEDS: FUROSEMIDE 40 MG/4 ML VIAL IVP SCH (08:33)
[2020-09-03] MEDS: DOCUSATE 100 MG/10 ML UDC GT SCH (08:33)
[2020-09-03] MEDS: QUEtiapine FUMARATE 25 MG TAB NG SCH ×2 (08:34→21:15)
[2020-09-03] MEDS: POTASSIUM CHLORIDE 10 MEQ TABER PO PRN ×2 (08:34→12:06)
[2020-09-03] MEDS: ASPIRIN 81 MG TAB.CHEW PO SCH (08:34)
[2020-09-03] MEDS: DEXAMETHASONE 4 MG/ML VIAL IVP SCH (08:35)
[2020-09-03] MEDS: cilostazoL 100 MG TAB PO SCH (08:36)
[2020-09-03] MEDS: MEROPENEM 500 MG in NACL 0.9% 50 ML IV SCH ×2 (08:38→21:54)
[2020-09-03] MEDS ORDERED: POTASSIUM CHLORIDE 10 MEQ TABER PO ONE (11:55)
[2020-09-03] MEDS: VANCOMYCIN HCL 1.25 GM in DEXTROSE 5% 250 ML IV SCH (15:26)
[2020-09-03] MEDS ORDERED: NACL 0.9% 500 ML IV SCH (15:45)
[2020-09-03] MEDS ORDERED: HEPARIN PER PHARMACY MC PRN ×2 (15:55→16:10)
[2020-09-03] MEDS ORDERED: hePARIN / DEXT 5% PREMIX 250 ML IV SCH (15:55)
[2020-09-03] MEDS ORDERED: HEPARIN PER PHARMACY MC SCH (15:55)
[2020-09-03] MEDS: hePARIN / DEXT 5% PREMIX 250 ML IV SCH (17:39)
[2020-09-03] MEDS: ATORVASTATIN 20 MG TAB PO SCH (21:16)
[2020-09-04] VITALS (33 sets, daily range): BP systolic 121–189; BP diastolic 9–128
[2020-09-04] MEDS: ALBUTEROL SULFATE/IPRATROPIU 3 ML SOL IH SCH ×4 (01:00→19:18)
[2020-09-04] MEDS: hePARIN / DEXT 5% PREMIX 250 ML IV SCH (01:17)
[2020-09-04] MEDS: LABETALOL 100 MG/20 ML VIAL IV PRN ×3 (01:27→17:03)
[2020-09-04 06:13] LABS: BASOPHILS # (AUTO) 0.1 K/uL (0.00-0.22); BASOPHILS % (AUTO) 0.6 % (0.0-2.0); EOSINOPHILS # (AUTO) 0.1 K/uL (0-0.4); EOSINOPHILS % (AUTO) 0.8 % (0.0-4.0); HEMATOCRIT 25.4 % (36-52); HEMOGLOBIN 8.3 g/dL (12.0-18.0); LYMPHOCYTES # (AUTO) 1.1 K/uL (2.0-11.5); LYMPHOCYTES % (AUTO) 9.6 % (20.5-51.1); MEAN CORPUSCULAR HEMOGLOBIN 30 pg (27-31); MEAN CORPUSCULAR HGB CONC 33 g/dL (33-37); MEAN CORPUSCULAR VOLUME 90.6 fL (80-94); MONOCYTES # (AUTO) 0.7 K/uL (0.8-1.0); MONOCYTES % (AUTO) 6.2 % (1.7-9.3); NEUTROPHILS # (AUTO) 9.1 K/uL (1.8-7.7); NEUTROPHILS % (AUTO) 82.8 % (42.2-75.2); PLATELET COUNT (AUTO) 200 K/uL (140-450); RED BLOOD CELL COUNT(AUTO) 2.81 MIL/uL (4.20-6.10); RED CELL DISTRIBUTION WIDTH 15.1 % (11.6-13.7)
[2020-09-04 06:25] LABS: ANION GAP 14.3 (8-16); ASPARTATE AMINOTRANSFERASE 37 U/L (15-37); CARBON DIOXIDE 25.3 mmol/L (21-32); CHLORIDE 103 mmol/L (98-107); CREATININE 1.1 mg/dL (0.6-1.3); GLUCOSE 136 mg/dL (74-106); POTASSIUM 3.6 mmol/L (3.5-5.1); SODIUM SERUM 139 mmol/L (136-145); TOTAL BILIRUBIN 0.8 mg/dL (0.0-1.0); UREA NITROGEN, BLOOD 37 mg/dL (7-18)
[2020-09-04] MEDS ORDERED: VANCOMYCIN PER PHARMACY MC PRN (08:50)
[2020-09-04] MEDS: DEXAMETHASONE 4 MG/ML VIAL IVP SCH (09:00)
[2020-09-04] MEDS: POLYETHYLENE GLYCOL 17 GM/PKT PO SCH ×2 (09:00→20:36)
[2020-09-04] MEDS: PANTOPRAZOLE 40 MG INJ VIAL IVP SCH ×2 (09:00→20:36)
[2020-09-04] MEDS: QUEtiapine FUMARATE 25 MG TAB NG SCH ×2 (09:00→20:35)
[2020-09-04] MEDS: LACTULOSE 20 GM/30 ML UDC PO SCH ×2 (09:00→20:36)
[2020-09-04] MEDS: ASPIRIN 81 MG TAB.CHEW PO SCH (09:00)
[2020-09-04] MEDS: DOCUSATE 100 MG/10 ML UDC GT SCH (09:59)
[2020-09-04] MEDS: MEROPENEM 500 MG in NACL 0.9% 50 ML IV SCH ×2 (09:59→20:35)
[2020-09-04] MEDS: DEXMEDETOMIDINE HCL 400 MCG in DEXTROSE 5% 96 ML IV PRN ×2 (11:39→23:40)
[2020-09-04] MEDS: DEXMEDETOMIDINE HCL 400 MCG in NACL 0.9% 96 ML IV PRN (13:20)
[2020-09-04] MEDS: LORazepam 2 MG/ML VIAL IVP PRN (14:47)
[2020-09-04] MEDS: VANCOMYCIN HCL 1.25 GM in DEXTROSE 5% 250 ML IV SCH (15:31)
[2020-09-04] MEDS: ATORVASTATIN 20 MG TAB PO SCH (20:36)
[2020-09-05] VITALS (33 sets, daily range): BP systolic 109–171; BP diastolic 34–79
[2020-09-05] MEDS: ALBUTEROL SULFATE/IPRATROPIU 3 ML SOL IH SCH ×4 (00:56→19:16)
[2020-09-05 06:11] LABS: BASOPHILS # (AUTO) 0.1 K/uL (0.00-0.22); BASOPHILS % (AUTO) 1.1 % (0.0-2.0); EOSINOPHILS # (AUTO) 0.2 K/uL (0-0.4); EOSINOPHILS % (AUTO) 2.2 % (0.0-4.0); HEMATOCRIT 23.1 % (36-52); HEMOGLOBIN 7.6 g/dL (12.0-18.0); LYMPHOCYTES # (AUTO) 1.2 K/uL (2.0-11.5); LYMPHOCYTES % (AUTO) 14.6 % (20.5-51.1); MEAN CORPUSCULAR HEMOGLOBIN 30 pg (27-31); MEAN CORPUSCULAR HGB CONC 33 g/dL (33-37); MONOCYTES # (AUTO) 0.5 K/uL (0.8-1.0); MONOCYTES % (AUTO) 6.4 % (1.7-9.3); NEUTROPHILS # (AUTO) 6.3 K/uL (1.8-7.7); NEUTROPHILS % (AUTO) 75.7 % (42.2-75.2); PLATELET COUNT (AUTO) 184 K/uL (140-450); RED BLOOD CELL COUNT(AUTO) 2.57 MIL/uL (4.20-6.10); WHITE BLOOD COUNT (AUTO) 8.3 K/uL (4.8-10.8)
[2020-09-05 06:18] LABS: ANION GAP 10.8 (8-16); ASPARTATE AMINOTRANSFERASE 28 U/L (15-37); CHLORIDE 104 mmol/L (98-107); GLUCOSE 125 mg/dL (74-106); POTASSIUM 3.8 mmol/L (3.5-5.1); SODIUM SERUM 137 mmol/L (136-145); TOTAL BILIRUBIN 0.7 mg/dL (0.0-1.0); UREA NITROGEN, BLOOD 29 mg/dL (7-18)
[2020-09-05] MEDS: ASPIRIN 81 MG TAB.CHEW PO SCH (09:55)
[2020-09-05] MEDS: LACTULOSE 20 GM/30 ML UDC PO SCH ×2 (09:55→20:55)
[2020-09-05] MEDS: DOCUSATE 100 MG/10 ML UDC GT SCH (09:56)
[2020-09-05] MEDS: POLYETHYLENE GLYCOL 17 GM/PKT PO SCH ×2 (09:56→20:56)
[2020-09-05] MEDS: PANTOPRAZOLE 40 MG INJ VIAL IVP SCH ×2 (09:57→20:55)
[2020-09-05] MEDS: DEXAMETHASONE 4 MG/ML VIAL IVP SCH (09:57)
[2020-09-05] MEDS: QUEtiapine FUMARATE 25 MG TAB NG SCH ×2 (09:58→20:55)
[2020-09-05] MEDS: MEROPENEM 500 MG in NACL 0.9% 50 ML IV SCH ×2 (09:58→20:54)
[2020-09-05] MEDS: DEXMEDETOMIDINE HCL 400 MCG in DEXTROSE 5% 96 ML IV PRN ×2 (09:59→18:34)
[2020-09-05] MEDS: ACETAMINOPHEN 325 MG TAB PO PRN (15:00)
[2020-09-05] MEDS: VANCOMYCIN HCL 1.25 GM in DEXTROSE 5% 250 ML IV SCH (16:20)
[2020-09-05] MEDS: ATORVASTATIN 20 MG TAB PO SCH (20:55)
[2020-09-06] VITALS (36 sets, daily range): BP systolic 110–174; BP diastolic 45–101
[2020-09-06] MEDS: ALBUTEROL SULFATE/IPRATROPIU 3 ML SOL IH SCH ×4 (01:46→19:40)
[2020-09-06] MEDS: hydrALAZINE 20 MG/ML VIAL IVP PRN (03:25)
[2020-09-06 05:55] LABS: BASOPHILS # (AUTO) 0.1 K/uL (0.00-0.22); BASOPHILS % (AUTO) 0.7 % (0.0-2.0); EOSINOPHILS # (AUTO) 0.4 K/uL (0-0.4); EOSINOPHILS % (AUTO) 4.5 % (0.0-4.0); HEMATOCRIT 26.2 % (36-52); HEMOGLOBIN 8.8 g/dL (12.0-18.0); LYMPHOCYTES # (AUTO) 1.2 K/uL (2.0-11.5); MEAN CORPUSCULAR HEMOGLOBIN 31 pg (27-31); MEAN CORPUSCULAR HGB CONC 34 g/dL (33-37); MEAN CORPUSCULAR VOLUME 90.6 fL (80-94); MONOCYTES # (AUTO) 0.5 K/uL (0.8-1.0); MONOCYTES % (AUTO) 5.1 % (1.7-9.3); NEUTROPHILS # (AUTO) 7.3 K/uL (1.8-7.7); NEUTROPHILS % (AUTO) 76.7 % (42.2-75.2); PLATELET COUNT (AUTO) 228 K/uL (140-450); RED BLOOD CELL COUNT(AUTO) 2.89 MIL/uL (4.20-6.10); RED CELL DISTRIBUTION WIDTH 15.3 % (11.6-13.7); WHITE BLOOD COUNT (AUTO) 9.6 K/uL (4.8-10.8)
[2020-09-06 06:09] LABS: ALBUMIN 2.2 g/dL (3.4-5.0); ANION GAP 12.6 (8-16); ASPARTATE AMINOTRANSFERASE 27 U/L (15-37); CARBON DIOXIDE 24.3 mmol/L (21-32); CHLORIDE 102 mmol/L (98-107); GLUCOSE 108 mg/dL (74-106); POTASSIUM 3.9 mmol/L (3.5-5.1); SODIUM SERUM 135 mmol/L (136-145); TOTAL BILIRUBIN 0.8 mg/dL (0.0-1.0); UREA NITROGEN, BLOOD 25 mg/dL (7-18)
[2020-09-06] MEDS: MEROPENEM 500 MG in NACL 0.9% 50 ML IV SCH (08:35)
[2020-09-06] MEDS: LACTULOSE 20 GM/30 ML UDC PO SCH ×2 (09:00→20:05)
[2020-09-06] MEDS: PANTOPRAZOLE 40 MG INJ VIAL IVP SCH ×2 (09:00→20:04)
[2020-09-06] MEDS: DEXAMETHASONE 4 MG/ML VIAL IVP SCH (09:00)
[2020-09-06] MEDS: POLYETHYLENE GLYCOL 17 GM/PKT PO SCH ×2 (09:00→20:05)
[2020-09-06] MEDS: DOCUSATE 100 MG/10 ML UDC GT SCH (09:00)
[2020-09-06] MEDS: QUEtiapine FUMARATE 25 MG TAB NG SCH ×2 (09:00→20:05)
[2020-09-06] MEDS: ASPIRIN 81 MG TAB.CHEW PO SCH (09:00)
[2020-09-06] MEDS: LORazepam 2 MG/ML VIAL IVP PRN (09:35)
[2020-09-06] MEDS: VANCOMYCIN HCL 1.25 GM in DEXTROSE 5% 250 ML IV SCH (15:23)
[2020-09-06] MEDS: ATORVASTATIN 20 MG TAB PO SCH (20:05)
[2020-09-07] VITALS (35 sets, daily range): BP systolic 117–187; BP diastolic 48–90
[2020-09-07] MEDS: ALBUTEROL SULFATE/IPRATROPIU 3 ML SOL IH SCH ×4 (01:32→19:28)
[2020-09-07] MEDS: DEXMEDETOMIDINE HCL 400 MCG in DEXTROSE 5% 96 ML IV PRN ×3 (02:12→21:55)
[2020-09-07] MEDS: hePARIN / DEXT 5% PREMIX 250 ML IV SCH ×2 (02:14→19:56)
[2020-09-07] MEDS: DEXAMETHASONE 4 MG/ML VIAL IVP SCH (08:59)
[2020-09-07] MEDS: ASPIRIN 81 MG TAB.CHEW PO SCH (09:00)
[2020-09-07] MEDS: PANTOPRAZOLE 40 MG INJ VIAL IVP SCH ×2 (09:00→20:58)
[2020-09-07] MEDS: DOCUSATE 100 MG/10 ML UDC GT SCH (09:00)
[2020-09-07] MEDS: LACTULOSE 20 GM/30 ML UDC PO SCH ×2 (09:00→20:58)
[2020-09-07] MEDS: QUEtiapine FUMARATE 25 MG TAB NG SCH ×2 (09:01→20:58)
[2020-09-07] MEDS: POLYETHYLENE GLYCOL 17 GM/PKT PO SCH ×2 (09:01→20:58)
[2020-09-07] MEDS: ATORVASTATIN 20 MG TAB PO SCH (20:58)
[2020-09-08] VITALS (35 sets, daily range): BP systolic 114–188; BP diastolic 54–112
[2020-09-08] MEDS: ALBUTEROL SULFATE/IPRATROPIU 3 ML SOL IH SCH ×4 (01:38→19:00)
[2020-09-08] MEDS: LABETALOL 100 MG/20 ML VIAL IV PRN ×3 (01:42→15:39)
[2020-09-08 06:13] LABS: ASPARTATE AMINOTRANSFERASE 38 U/L (15-37); CHLORIDE 101 mmol/L (98-107); GLUCOSE 131 mg/dL (74-106); SODIUM SERUM 135 mmol/L (136-145); TOTAL BILIRUBIN 0.4 mg/dL (0.0-1.0); UREA NITROGEN, BLOOD 27 mg/dL (7-18)
[2020-09-08 06:38] LABS: BASOPHILS # (AUTO) 0.1 K/uL (0.00-0.22); BASOPHILS % (AUTO) 0.7 % (0.0-2.0); EOSINOPHILS # (AUTO) 0.2 K/uL (0-0.4); EOSINOPHILS % (AUTO) 2.5 % (0.0-4.0); HEMATOCRIT 23.2 % (36-52); LYMPHOCYTES # (AUTO) 0.8 K/uL (2.0-11.5); MEAN CORPUSCULAR HEMOGLOBIN 31 pg (27-31); MEAN CORPUSCULAR HGB CONC 33 g/dL (33-37); MEAN CORPUSCULAR VOLUME 91.6 fL (80-94); MONOCYTES # (AUTO) 0.7 K/uL (0.8-1.0); MONOCYTES % (AUTO) 8.1 % (1.7-9.3); NEUTROPHILS # (AUTO) 6.8 K/uL (1.8-7.7); NEUTROPHILS % (AUTO) 79.7 % (42.2-75.2); PLATELET COUNT (AUTO) 183 K/uL (140-450); RED BLOOD CELL COUNT(AUTO) 2.54 MIL/uL (4.20-6.10); RED CELL DISTRIBUTION WIDTH 15.1 % (11.6-13.7); WHITE BLOOD COUNT (AUTO) 8.6 K/uL (4.8-10.8)
[2020-09-08 06:41] LABS: HEMOGLOBIN 7.7 g/dL (12.0-18.0)
[2020-09-08] MEDS: PANTOPRAZOLE 40 MG INJ VIAL IVP SCH ×2 (08:47→20:36)
[2020-09-08] MEDS: QUEtiapine FUMARATE 25 MG TAB NG SCH ×2 (08:48→20:36)
[2020-09-08] MEDS: ASPIRIN 81 MG TAB.CHEW PO SCH (08:48)
[2020-09-08] MEDS: DEXAMETHASONE 4 MG/ML VIAL IVP SCH (08:48)
[2020-09-08] MEDS: DOCUSATE 100 MG/10 ML UDC GT SCH (08:48)
[2020-09-08] MEDS: LACTULOSE 20 GM/30 ML UDC PO SCH ×2 (08:49→20:36)
[2020-09-08] MEDS: POLYETHYLENE GLYCOL 17 GM/PKT PO SCH ×2 (08:49→20:37)
[2020-09-08] MEDS ORDERED: BUPIVACAINE MPF 0.25% 10 ML VIAL INJ ONE (12:35)
[2020-09-08] MEDS: ATORVASTATIN 20 MG TAB PO SCH (20:37)
[2020-09-08] MEDS: DEXMEDETOMIDINE HCL 400 MCG in DEXTROSE 5% 96 ML IV PRN (23:00)
[2020-09-09] VITALS (51 sets, daily range): BP systolic 104–177; BP diastolic 38–116
[2020-09-09] MEDS: ALBUTEROL SULFATE/IPRATROPIU 3 ML SOL IH SCH ×4 (01:10→19:51)
[2020-09-09] MEDS ORDERED: HEPARIN PER PHARMACY MC PRN (05:20)
[2020-09-09 07:46] LABS: BASOPHILS # (AUTO) 0.1 K/uL (0.00-0.22); BASOPHILS % (AUTO) 1.4 % (0.0-2.0); EOSINOPHILS # (AUTO) 0.1 K/uL (0-0.4); EOSINOPHILS % (AUTO) 1.3 % (0.0-4.0); HEMATOCRIT 24.2 % (36-52); HEMOGLOBIN 7.9 g/dL (12.0-18.0); LYMPHOCYTES # (AUTO) 1.1 K/uL (2.0-11.5); LYMPHOCYTES % (AUTO) 10.8 % (20.5-51.1); MEAN CORPUSCULAR HEMOGLOBIN 29 pg (27-31); MEAN CORPUSCULAR HGB CONC 33 g/dL (33-37); MONOCYTES # (AUTO) 1.2 K/uL (0.8-1.0); MONOCYTES % (AUTO) 11.9 % (1.7-9.3); NEUTROPHILS # (AUTO) 7.5 K/uL (1.8-7.7); NEUTROPHILS % (AUTO) 74.6 % (42.2-75.2); PLATELET COUNT (AUTO) 170 K/uL (140-450); RED BLOOD CELL COUNT(AUTO) 2.72 MIL/uL (4.20-6.10); RED CELL DISTRIBUTION WIDTH 15.1 % (11.6-13.7)
[2020-09-09 08:40] LABS: ANION GAP 12.1 (8-16); CARBON DIOXIDE 25.3 mmol/L (21-32); CHLORIDE 101 mmol/L (98-107); GLUCOSE 162 mg/dL (74-106); POTASSIUM 4.4 mmol/L (3.5-5.1); SODIUM SERUM 134 mmol/L (136-145); UREA NITROGEN, BLOOD 24 mg/dL (7-18)
[2020-09-09] MEDS: POLYETHYLENE GLYCOL 17 GM/PKT PO SCH ×2 (09:00→20:25)
[2020-09-09] MEDS: ASPIRIN 81 MG TAB.CHEW PO SCH (09:00)
[2020-09-09] MEDS: LACTULOSE 20 GM/30 ML UDC PO SCH ×2 (09:00→20:24)
[2020-09-09] MEDS: DEXAMETHASONE 4 MG/ML VIAL IVP SCH (09:12)
[2020-09-09] MEDS: DOCUSATE 100 MG/10 ML UDC GT SCH (09:12)
[2020-09-09] MEDS: PANTOPRAZOLE 40 MG INJ VIAL IVP SCH ×2 (09:12→20:24)
[2020-09-09] MEDS: QUEtiapine FUMARATE 25 MG TAB NG SCH ×2 (09:13→20:24)
[2020-09-09] MEDS: ACETAMINOPHEN 325 MG TAB PO PRN (10:08)
[2020-09-09] MEDS: hePARIN / DEXT 5% PREMIX 250 ML IV SCH (13:56)
[2020-09-09] MEDS: ATORVASTATIN 20 MG TAB PO SCH (20:25)
[2020-09-09] MEDS: LABETALOL 100 MG/20 ML VIAL IV PRN (23:19)
[2020-09-10] VITALS (69 sets, daily range): BP systolic 78–170; BP diastolic 47–91
[2020-09-10] MEDS: DEXMEDETOMIDINE HCL 400 MCG in DEXTROSE 5% 96 ML IV PRN ×2 (00:54→10:00)
[2020-09-10] MEDS: ALBUTEROL SULFATE/IPRATROPIU 3 ML SOL IH SCH ×4 (01:23→20:00)
[2020-09-10 06:14] LABS: BASOPHILS # (AUTO) 0.1 K/uL (0.00-0.22); BASOPHILS % (AUTO) 0.9 % (0.0-2.0); EOSINOPHILS # (AUTO) 0.4 K/uL (0-0.4); EOSINOPHILS % (AUTO) 3.8 % (0.0-4.0); HEMATOCRIT 23.4 % (36-52); HEMOGLOBIN 8.2 g/dL (12.0-18.0); LYMPHOCYTES # (AUTO) 0.9 K/uL (2.0-11.5); LYMPHOCYTES % (AUTO) 9.3 % (20.5-51.1); MEAN CORPUSCULAR HEMOGLOBIN 32 pg (27-31); MEAN CORPUSCULAR HGB CONC 35 g/dL (33-37); MEAN CORPUSCULAR VOLUME 91.1 fL (80-94); MONOCYTES # (AUTO) 0.7 K/uL (0.8-1.0); MONOCYTES % (AUTO) 7.9 % (1.7-9.3); NEUTROPHILS # (AUTO) 7.4 K/uL (1.8-7.7); NEUTROPHILS % (AUTO) 78.1 % (42.2-75.2); PLATELET COUNT (AUTO) 223 K/uL (140-450); RED BLOOD CELL COUNT(AUTO) 2.57 MIL/uL (4.20-6.10); RED CELL DISTRIBUTION WIDTH 15.2 % (11.6-13.7); WHITE BLOOD COUNT (AUTO) 9.5 K/uL (4.8-10.8)
[2020-09-10 06:20] LABS: ANION GAP 12.7 (8-16); CARBON DIOXIDE 26.1 mmol/L (21-32); CHLORIDE 100 mmol/L (98-107); CREATININE 0.9 mg/dL (0.6-1.3); GLUCOSE 130 mg/dL (74-106); SODIUM SERUM 133 mmol/L (136-145); UREA NITROGEN, BLOOD 25 mg/dL (7-18)
[2020-09-10 06:21] LABS: POTASSIUM 5.8 mmol/L (3.5-5.1)
[2020-09-10] MEDS ORDERED: DEXTROSE 50% 50 ML SYR IVP ONE (07:00)
[2020-09-10] MEDS ORDERED: INSULIN REGULAR, HUMAN 100 UNIT/ML VIAL IVP ONE (07:00)
[2020-09-10] MEDS ORDERED: CALCIUM CHLORIDE 10% 100 MG/ML SYR IVP ONE (07:20)
[2020-09-10] MEDS: hePARIN / DEXT 5% PREMIX 250 ML IV SCH (08:18)
[2020-09-10] MEDS: ASPIRIN 81 MG TAB.CHEW PO SCH (09:00)
[2020-09-10] MEDS: LACTULOSE 20 GM/30 ML UDC PO SCH ×2 (09:32→20:57)
[2020-09-10] MEDS: POLYETHYLENE GLYCOL 17 GM/PKT PO SCH ×2 (09:32→20:58)
[2020-09-10] MEDS: DOCUSATE 100 MG/10 ML UDC GT SCH (09:33)
[2020-09-10] MEDS: DEXAMETHASONE 4 MG/ML VIAL IVP SCH (09:33)
[2020-09-10] MEDS: PANTOPRAZOLE 40 MG INJ VIAL IVP SCH ×2 (09:33→20:58)
[2020-09-10] MEDS: QUEtiapine FUMARATE 25 MG TAB NG SCH ×2 (09:33→20:58)
[2020-09-10] MEDS: ACETAMINOPHEN 325 MG TAB PO PRN (15:29)
[2020-09-10] MEDS: ATORVASTATIN 20 MG TAB PO SCH (20:58)
[2020-09-10] MEDS: hydrALAZINE 20 MG/ML VIAL IVP PRN (21:47)
[2020-09-11] VITALS (43 sets, daily range): BP systolic 92–168; BP diastolic 43–76
[2020-09-11] MEDS: ACETAMINOPHEN 325 MG TAB PO PRN (00:15)
[2020-09-11] MEDS: hePARIN / DEXT 5% PREMIX 250 ML IV SCH ×2 (03:06→18:43)
[2020-09-11 05:32] LABS: BASOPHILS # (AUTO) 0.1 K/uL (0.00-0.22); BASOPHILS % (AUTO) 0.6 % (0.0-2.0); EOSINOPHILS # (AUTO) 0.1 K/uL (0-0.4); EOSINOPHILS % (AUTO) 1.3 % (0.0-4.0); HEMOGLOBIN 7.6 g/dL (12.0-18.0); LYMPHOCYTES % (AUTO) 11.7 % (20.5-51.1); MEAN CORPUSCULAR HEMOGLOBIN 30 pg (27-31); MEAN CORPUSCULAR HGB CONC 33 g/dL (33-37); MEAN CORPUSCULAR VOLUME 91.1 fL (80-94); MONOCYTES # (AUTO) 0.7 K/uL (0.8-1.0); MONOCYTES % (AUTO) 8.8 % (1.7-9.3); NEUTROPHILS # (AUTO) 6.4 K/uL (1.8-7.7); NEUTROPHILS % (AUTO) 77.6 % (42.2-75.2); PLATELET COUNT (AUTO) 202 K/uL (140-450); RED BLOOD CELL COUNT(AUTO) 2.52 MIL/uL (4.20-6.10); RED CELL DISTRIBUTION WIDTH 15.5 % (11.6-13.7); WHITE BLOOD COUNT (AUTO) 8.2 K/uL (4.8-10.8)
[2020-09-11 06:07] LABS: ANION GAP 12.5 (8-16); CARBON DIOXIDE 26.3 mmol/L (21-32); CHLORIDE 100 mmol/L (98-107); GLUCOSE 135 mg/dL (74-106); POTASSIUM 3.8 mmol/L (3.5-5.1); SODIUM SERUM 135 mmol/L (136-145); UREA NITROGEN, BLOOD 22 mg/dL (7-18)
[2020-09-11] MEDS: ALBUTEROL SULFATE/IPRATROPIU 3 ML SOL IH SCH ×3 (07:14→19:44)
[2020-09-11] MEDS: LACTULOSE 20 GM/30 ML UDC PO SCH ×2 (09:00→20:57)
[2020-09-11] MEDS: DOCUSATE 100 MG/10 ML UDC GT SCH (09:15)
[2020-09-11] MEDS: PANTOPRAZOLE 40 MG INJ VIAL IVP SCH ×2 (09:16→20:18)
[2020-09-11] MEDS: QUEtiapine FUMARATE 25 MG TAB NG SCH ×2 (09:17→20:57)
[2020-09-11] MEDS: DEXAMETHASONE 4 MG/ML VIAL IVP SCH (09:18)
[2020-09-11] MEDS: POLYETHYLENE GLYCOL 17 GM/PKT PO SCH ×2 (09:20→20:57)
[2020-09-11] MEDS: ASPIRIN 81 MG TAB.CHEW PO SCH (09:31)
[2020-09-11] MEDS ORDERED: ALBUTEROL SULFATE/IPRATROPIU 3 ML SOL IH PRN (14:15)
[2020-09-11] MEDS ORDERED: DEXT 5% / NACL 0.45% 1,000 ML IV SCH (18:40)
[2020-09-11] MEDS: ATORVASTATIN 20 MG TAB PO SCH (20:57)
[2020-09-11] MEDS ORDERED: MORPHINE SULFATE 2 MG/ML SYR IVP PRN (21:10)
[2020-09-11] MEDS ORDERED: MORPHINE SULFATE 4 MG/ML SYR IVP PRN (21:10)
[2020-09-11] MEDS: DEXMEDETOMIDINE HCL 400 MCG in NACL 0.9% 96 ML IV PRN (22:04)
[2020-09-12] VITALS (33 sets, daily range): BP systolic 72–202; BP diastolic 40–137
[2020-09-12] MEDS: ALBUTEROL SULFATE/IPRATROPIU 3 ML SOL IH SCH (01:49)
[2020-09-12] MEDS: hydrALAZINE 20 MG/ML VIAL IVP PRN (02:05)
[2020-09-12] MEDS: DEXMEDETOMIDINE HCL 400 MCG in NACL 0.9% 96 ML IV PRN ×2 (07:51→14:45)
[2020-09-12] MEDS: DOCUSATE 100 MG/10 ML UDC GT SCH (08:29)
[2020-09-12] MEDS: PANTOPRAZOLE 40 MG INJ VIAL IVP SCH (08:30)
[2020-09-12] MEDS: DEXAMETHASONE 4 MG/ML VIAL IVP SCH (08:30)
[2020-09-12] MEDS: QUEtiapine FUMARATE 25 MG TAB NG SCH (08:31)
[2020-09-12] MEDS: ASPIRIN 81 MG TAB.CHEW PO SCH (08:32)
[2020-09-12] MEDS: LACTULOSE 20 GM/30 ML UDC PO SCH (08:33)
[2020-09-12] MEDS ORDERED: MORPHINE SULFATE 5 MG/ML VIAL IVP SCH (10:00)
[2020-09-12] MEDS: MORPHINE SULFATE 50 MG in NACL 0.9% 45 ML IV PRN ×2 (10:30→15:05)
[2020-09-12] MEDS ORDERED: LORazepam 2 MG/ML VIAL IVP PRN (13:00)
== END 2020-09-12 17:25 | DRG 870 ==
LOC: MED 08:05 → MTU 11:00 → MIC 08-17 01:07
PROVIDERS: ADMIT Hospitalist; ATTEND Hospitalist
PROC: 5A12012 Performance of Cardiac Output, Single, Manual (ICD-10-PCS; 2020-08-16)
PROC: 5A1955Z Respiratory Ventilation, Greater than 96 Consecutive Hours (ICD-10-PCS; principal; 2020-08-17)
PROC: 0BH17EZ Insertion of Endotracheal Airway into Trachea, Via Natural or Artificial Opening (ICD-10-PCS; 2020-08-17)
PROC: XW13325 Transfusion of Convalescent Plasma (Nonautologous) into Peripheral Vein, Percutaneous Approach, New Technology Group 5 (ICD-10-PCS; 2020-08-17)
PROC: 02HV33Z Insertion of Infusion Device into Superior Vena Cava, Percutaneous Approach (ICD-10-PCS; 2020-08-17)
PROC: 0BH17EZ Insertion of Endotracheal Airway into Trachea, Via Natural or Artificial Opening (ICD-10-PCS; 2020-08-26)
PROC: 5A0935A Assistance with Respiratory Ventilation, Less than 24 Consecutive Hours, High Flow/Velocity Cannula (ICD-10-PCS; 2020-08-26)
PROC: 5A1935Z Respiratory Ventilation, Less than 24 Consecutive Hours (ICD-10-PCS; 2020-08-27)
PROC: 5A1935Z Respiratory Ventilation, Less than 24 Consecutive Hours (ICD-10-PCS; 2020-08-28)
PROC: 30233N1 Transfusion of Nonautologous Red Blood Cells into Peripheral Vein, Percutaneous Approach (ICD-10-PCS; 2020-08-29)
PROC: 5A12012 Performance of Cardiac Output, Single, Manual (ICD-10-PCS; 2020-08-30)
PROC: 5A09357 Assistance with Respiratory Ventilation, Less than 24 Consecutive Hours, Continuous Positive Airway Pressure (ICD-10-PCS; 2020-09-12)
PROC: 5A1935Z Respiratory Ventilation, Less than 24 Consecutive Hours (ICD-10-PCS; 2020-09-12)
DX: A41.9 Sepsis, unspecified organism (principal); R65.21 Severe sepsis with septic shock; U07.1 COVID-19; I21.4 Non-ST elevation (NSTEMI) myocardial infarction; J12.82 Pneumonia due to coronavirus disease 2019; J96.01 Acute respiratory failure with hypoxia; N17.0 Acute kidney failure with tubular necrosis; D68.69 Other thrombophilia; E87.1 Hypo-osmolality and hyponatremia; I13.0 Hypertensive heart and chronic kidney disease with heart failure and stage 1 through stage 4 chronic kidney disease, or unspecified chronic kidney disease; N40.0 Benign prostatic hyperplasia without lower urinary tract symptoms; K21.9 Gastro-esophageal reflux disease without esophagitis; J45.909 Unspecified asthma, uncomplicated; I25.10 Atherosclerotic heart disease of native coronary artery without angina pectoris; M19.90 Unspecified osteoarthritis, unspecified site; E11.65 Type 2 diabetes mellitus with hyperglycemia; Z51.5 Encounter for palliative care; E11.22 Type 2 diabetes mellitus with diabetic chronic kidney disease; N18.30 Chronic kidney disease, stage 3 unspecified; E78.5 Hyperlipidemia, unspecified; I70.222 Atherosclerosis of native arteries of extremities with rest pain, left leg; E11.51 Type 2 diabetes mellitus with diabetic peripheral angiopathy without gangrene; I50.9 Heart failure, unspecified; D64.9 Anemia, unspecified; I46.9 Cardiac arrest, cause unspecified; E11.21 Type 2 diabetes mellitus with diabetic nephropathy; I25.5 Ischemic cardiomyopathy; Z95.1 Presence of aortocoronary bypass graft; Z91.041 Radiographic dye allergy status; Z91.013 Allergy to seafood; Z86.73 Personal history of transient ischemic attack (TIA), and cerebral infarction without residual deficits; Z91.81 History of falling; Z79.899 Other long term (current) drug therapy
CPT/HCPCS: 36415; 36600; 71045; 73590; 76770; 80048; 80053; 80202; 81001; 81003; 82272; 82533; 82803; 83036; 83615; 83625; 83735; 83880; 84100; 84132; 84484; 85025; 85379; 85610; 85651; 85730; 86140; 86886; 86900; 86901; 86920; 87040; 87070; 87081; 87086; 87205; 93005; 93922; 93925; 93971; 94002; 94003; 94640; 94660; 96374; 99291; C9113; J0171; J0360; J0456; J0461; J0696; J1100; J1200; J1644; J1650; J1815; J1940; J2060; J2185; J2250; J2270; J2543; J2704; J3010; J3370; J3490; J7030; J7042; J7060; P9016; P9017; P9046